=== PATIENT | female | born 1960 | race Caucasian/White ===

== ENCOUNTER 2017-12-03 10:43 | Inpatient (IN) | payer BC ==
[2017-12-03 11:03] LABS: #Basophils 0.1 thou/uL (0.0-0.2); #Lymphocytes 0.9 thou/uL (1.20-3.40); #Monocytes 0.3 thou/uL (0.11-0.59); #Neutrophils 2.2 thou/uL (1.40-6.50); %Eosinophils 1.1 % (0.0-10.0); %Lymphocytes 26.2 % (21.0-51.0); %Monocytes 8.8 % (0.0-10.0); Hemoglobin 12.7 g/dL (12.0-16.0); Mean Corpuscular HGB CONC 34.1 g/dL (32.0-36.0); Mean Corpuscular Volume 93.8 fL (78.0-98.0); Mean Platelet Volume 6.5 fL (7.4-10.4); Platelet Count 181 thou/uL (130-400); RBC Distribution Width 11.5 % (11.5-14.5); Red Blood Cell (RBC) Count 3.96 mill/uL (4.20-5.40); White Blood Cell (WBC) Count 3.6 thou/uL (4.8-10.8)
[2017-12-03] MEDS ORDERED: Mannitol 12.5 GM/50 ML ONE ×2 (11:21→11:22)
[2017-12-03 11:22] LABS: ALT (SGPT) 15 U/L (8-55); AST (SGOT) 21 U/L (5-34); Albumin 3.7 g/dL (3.5-5.0); Alkaline Phosphatase 30 U/L (40-150); Anion Gap 8 mmol/L (10-20); BUN (Urea Nitrogen) 16 mg/dL (9.8-20.1); Bilirubin, Total 0.5 mg/dL (0.2-1.2); Calc. Creatinine Clearance 0 mL/min (70-130); Calcium 8.6 mg/dL (7.8-10.44); Carbon Dioxide 26 mmol/L (22-29); Chloride 108 mmol/L (98-107); Estimated GFR-MDRD 77; Globulin 2.5 g/dL (2.4-3.5); Glucose 102 mg/dL (70-105); Potassium 3.5 mmol/L (3.5-5.1); Protein, Total 6.2 g/dL (6.0-8.3); Sodium 138 mmol/L (136-145)
[2017-12-03 11:26] LABS: INR-International Normal Ratio 1.3; Prothrombin Time 15.9 SEC (12.0-14.7)
--- NOTE | 2017-12-03 11:26 | CT ---
NONCONTRAST HEAD CT: Date: 12/03/17 HISTORY: Trauma. COMPARISON: None. FINDINGS: There is linear hyperdensity involving the sulci along the left and right frontal region near the ishmael london. Additional hyperdensity along the right sylvian fissure, right ambient cistern, and interpeduncu lar cistern is noted. Small amount of ventricular blood is noted along the posterior body of the righ t lateral ventricle. No significant midline shift. There is hypoattenuation involving the right linn sular white matter. No evidence of hydrocephalus. Calvarium is intact. Adequate aeration of the sinus es and mastoid air cells. IMPRESSION: Extra-axial hemorrhage predominantly in the subarachnoid space. Results of study discussed with Dr. Salas on 12/03/17 at 1104 hours. CODE CR. POS: [facility]
[2017-12-03 11:27] LABS: PTT 29.9 SEC (22.9-36.1)
[2017-12-03 11:30] LABS: Actual Bicarbonate (HCO3a) 20.2 mEq/L (22-28); Analyzer IN Cardio ER; Base Excess (BEa) 0.1 mEq/L (-2.0 to +3.0); Calcium, Ionized 1.01 mmol/L (1.12-1.30); Carboxyhemoglobin (COHb) 0.3 gm% (0.0-3.0); Hemoglobin (Hb) 12.7 g/dL (12.0-16.0); O2 Tension (PaO2) 384.5 mmHg (80.0-100.0); Potassium - ABG Lab 3.53 mmol/L (3.70-5.30)
[2017-12-03 11:31] LABS: CO2 Tension 21.7 mmHg (35.0-45.0); Puncture Site LRA; pH, Arterial 7.59 (7.35-7.45)
[2017-12-03 11:32] LABS: ALV-art Gradient -55.125 (0-20)
--- NOTE | 2017-12-03 11:56 | CT ---
CT OF THE CHEST WITH IV ENHANCEMENT CT OF THE ABDOMEN AND PELVIS WITH IV ENHANCEMENT: Date: 12-03-17 Provided Clinical History: Level I trauma. Riding a horse, rolled over her head. Unresponsive. FINDINGS: The heart, pericardium and great vessels demonstrate no evidence for traumatic abnormality. The lungs appear free of significant opacity. Bibasilar subsegmental atelectatic change. No pleural fluid or p neumothorax apparent. Endotracheal tube and enteric catheters are appropriately positioned. The solid abdominal organs demonstrate no evidence for traumatic abnormality. Periportal hypodensity involves the liver. A gallstone is seen. There is no bowel dilatation, inflammatory fat stranding, fr ee fluid, or free air apparent. Rodriguez catheter was noted within the urinary bladder with associated b ladder gas. There is a nondisplaced right posterior 8th rib fracture. No additional traumatic abnormality is seen involving the osseous structures. Sagittal and coronal thoracic and lumbar spine reconstructions dem onstrate normal spinal alignment and maintenance of vertebral body heights. IMPRESSION: Nondisplaced right posterior 8th rib fracture. No additional traumatic findings involving the chest, abdomen, and pelvis. Findings communicated to Dr. Salas via telephone at 11:24 a.m. 12-03-17. Code CR POS: [facility]
--- NOTE | 2017-12-03 11:59 | CT ---
CT ANGIOGRAM OF NECK WITH CONTRAST CT ANGIOGRAM OF HEAD WITH CONTRAST: Date: 12/03/17 Time: 1102 hours HISTORY: 57-year-old female status post head trauma and subarachnoid hemorrhage. Loss of consciousness. Curren tly unresponsive and intubated. Rule out intracranial aneurysm as primary cause of subarachnoid hemor rhage. Rule out carotid thromboembolism. TECHNIQUE: IV contrast bolus injection. Arterial bolus chasing technique scan from aortopulmonic window to verte x of head. Coronal and sagittal 3D MIP reconstructions. FINDINGS: The brachiocephalic, bilateral subclavian, bilateral codominant vertebral, bilateral common carotid, and bilateral internal carotid, are patent and of normal caliber, with no dissection, stenosis, or oc clusion. Bovine origin of common carotid artery. Bilateral carotid siphons, A1 and A2 segments of bilateral anterior cerebral arteries, M1 segments of bilateral middle cerebral arteries, intracranial vertebral arteries, basilar artery, bilateral poste rior cerebral arteries, are patent. There is a patent anterior communicating artery. There is a left posterior communicating artery. There is an approximately 2 x 2.5 x 2.5 mm focal minimal bulbous expansion at the trifurcation of the right middle cerebral artery, from which three branching vessels arise. This is at the location of the greatest concentration of subarachnoid hemorrhage (right Sylvian fissure). There is no evidence o f an aneurysm neck. There is no evidence of intracranial aneurysm elsewhere. Endotracheal tube distal tip is slightly superior to the danis, directed at the right mainstem bronc hus. NG tube passes through the esophagus, distal portion outside of field of view. No acute fracture or traumatic subluxation of the cervical spine. Dr. Noble discussed the aneurysm by telephone with Dr. Salas at approximately 1134 hours on 12/03/17. IMPRESSION: 1. 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 There is no evidence of an aneurysm neck. 2. No abnormalities of other major arteries of the head and neck. 3. No fracture of the cervical spine. CODE CR. POS: [facility]
[2017-12-03] MEDS ORDERED: Ondansetron HCl/PF 4 MG/2 ML Vial IVP PRN (12:11)
[2017-12-03] MEDS ORDERED: Dextrose 50% Abboject 50 ML SYRINGE SLOW IVP PRN (12:11)
[2017-12-03] MEDS ORDERED: Dextrose 5% in Water 1,000 ML IV PRN (12:11)
[2017-12-03] MEDS ORDERED: ISOVUE-370 76%-LOCM 1 ML ONE (12:31)
--- NOTE | 2017-12-03 12:31 | HP ---
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 The patient reportedly was noted to be looking down when she tipped over and landed on the ground with a horse falling on top of her. The horse immediately stood up. The patient was unresponsive at the scene. EMS was activated. The patient was found at the scene with initial Cordele coma scale of E1 B1 M2. Her right pupil was fixed and dilated. The patient was electively intubated to protect her airway. She was then transported via ground EMS to [facility] Emergency Department where she arrived within 1 hour of the incident. Cordele coma scale upon arrival was noted at 3T. PAST MEDICAL AND SURGICAL HISTORY: Unknown. SOCIAL HISTORY: Unknown. CURRENT MEDICATIONS: Unknown. ALLERGIES: Unknown. FAMILY HISTORY: Unknown. REVIEW OF SYSTEMS: Could not be obtained as patient is in deep coma. PHYSICAL EXAMINATION: GENERAL: This reveals a 57-year-old normally developed woman who is in a deep coma, but otherwise hemodynamically stable. VITAL SIGNS: Initial vital signs includes blood pressure 158/108, pulse 81, respiratory rate is 19, oxygen saturation 100% on FiO2 of 100%, end-tidal CO2 noted at 27. HEENT: Reveals normocephalic and atraumatic. The right pupil is fixed and dilated at 6 mm. The left pupil is 3 mm and sluggishly reactive to light. Nares are patent, no discharge. Tympanic membranes are visualized. No hemotympanum is present. The patient is orally intubated. NECK: Cervical spine immobilized in a C-collar and maintained in neutral position during my examination. She has no cervical neck bony step-offs on palpation. CHEST: Chest wall is stable. No gross deformities or step-offs are present. HEART: Reveals regular rate and rhythm, no murmurs or gallops auscultated. LUNGS: Clear to auscultation bilaterally. Breathing regular and unlabored. ABDOMEN: Soft, nontender, nondistended. Liver and spleen nonpalpable below costal margin. PELVIS: Stable. No gross deformities or step-offs are present. EXTREMITIES: Reveals 2+ radial and pedal pulses bilaterally. No ankle edema is present. MUSCULOSKELETAL: Could not be tested. The patient is currently pharmacologically paralyzed from intubation. Once log-rolled thoracic and lumbar spine were palpated free of any bony step- offs or abnormalities. PERTINENT LABORATORY DATA: Today includes a CBC with 3600 white blood cells, hemoglobin and hematocrit 12.7 and 37.1 respectively. Platelet count is 181, 000. PTT and INR 29.9 seconds and 1.3 respectively. Arterial blood gas; pH 7.59, pCO2 22, pO2 384, oxygen saturation 99%. Metabolic profile: Sodium 129, potassium is 3.53, chloride is 104. Ionized calcium is 1.01, glucose is 102. AST and ALT 21 and 15 respectively. Amylase is normal at 76. I have personally reviewed the radiographic studies including a CT scan of the brain, which reveals bilateral subarachnoid hemorrhages with a small right intraventricular hemorrhage. There is no significant mass effects noted. CT angiography of the neck is unremarkable for any vascular injuries. CT scan of the cervical spine reveals no fractures or dislocation. CT angiography of the brain; however, is highly suspicious for a small ruptured middle cerebral arterial aneurysm. CT scan of the thoracic and lumbar spine are unremarkable for any fractures or dislocation. CT scan of the chest is remarkable for a nondisplaced right 8th posterior rib fracture. There is no acute intrathoracic pathology of note, CT scan of the abdomen and pelvis reveals no acute intraabdominal pathology. IMPRESSION: 1. Status post fall from horse. 2. Acute subarachnoid hemorrhage, likely traumatic vs secondary to ruptured aneurysm in the middle cerebral arterial distribution. 3. Acute respiratory failure. 4. Right eighth rib fracture. 5. Cerebral edema PLAN: 1. Neurosurgical consultation regarding the acute traumatic brain injury. 2. We continue with full mechanical ventilator support until patient is hemodynamically and neurologically stable. 3. We will initiate gastritis and nonpharmacological VTE prophylaxis. 4. We will monitor and correct abnormal electrolytes. 5. We will monitor and control blood pressure. 6. We will optimize ventilatory support to avoid hyperventilation. Total Critical care time : 55 minutes MTDD
[2017-12-03] MEDS ORDERED: Propofol BOLUS 1,000 MG/100 ML VIAL IV PRN (13:30)
[2017-12-03] MEDS ORDERED: hydrALAZINE 20 MG/ML VIAL SLOW IVP PRN (13:48)
[2017-12-03] MEDS ORDERED: Labetalol HCl 100 MG/20 ML VIAL SLOW IVP PRN (13:48)
[2017-12-03 14:51] LABS: Actual Bicarbonate (HCO3a) 20.1 mEq/L (22-28); Base Excess (BEa) -3.4 mEq/L (-2.0 to +3.0); CO2 Tension 31.6 mmHg (35.0-45.0); Calcium, Ionized 1.14 mmol/L (1.12-1.30); Hemoglobin (Hb) 13.3 g/dL (12.0-16.0); pH, Arterial 7.42 (7.35-7.45)
[2017-12-03 14:52] LABS: Puncture Site RRA
[2017-12-03] MEDS: Sodium Chloride 0.9% 1,000 ML IV SCH ×4 (15:17→23:15)
[2017-12-03 17:27] LABS: Actual Bicarbonate (HCO3a) 20.5 mEq/L (22-28); Base Excess (BEa) -0.6 mEq/L (-2.0 to +3.0); Calcium, Ionized 1.09 mmol/L (1.12-1.30); Carboxyhemoglobin (COHb) 0.6 gm% (0.0-3.0); Hemoglobin (Hb) 13.1 g/dL (12.0-16.0); O2 Tension (PaO2) 284.2 mmHg (80.0-100.0); Potassium - ABG Lab 3.63 mmol/L (3.70-5.30); pH, Arterial 7.54 (7.35-7.45)
[2017-12-03 17:34] LABS: CO2 Tension 24.6 mmHg (35.0-45.0); Puncture Site RRA
[2017-12-03 17:55] LABS: Actual Bicarbonate (HCO3a) 23.2 mEq/L (22-28); Base Excess (BEa) -0.2 mEq/L (-2.0 to +3.0); CO2 Tension 34.1 mmHg (35.0-45.0); Calcium, Ionized 1.12 mmol/L (1.12-1.30); Carboxyhemoglobin (COHb) 0.9 gm% (0.0-3.0); Hemoglobin (Hb) 13.3 g/dL (12.0-16.0); O2 Tension (PaO2) 206.4 mmHg (80.0-100.0); Potassium - ABG Lab 3.62 mmol/L (3.70-5.30); pH, Arterial 7.45 (7.35-7.45)
[2017-12-03 17:56] LABS: Puncture Site RRA
[2017-12-03 17:57] LABS: ALV-art Gradient 36.175 (0-20)
[2017-12-03] MEDS ORDERED: Fentanyl 100 MCG/2 ML VIAL ONE ×2 (18:45→21:05)
--- NOTE | 2017-12-03 18:49 | CT ---
NONCONTRAST HEAD CT: Date: 12/03/17 HISTORY: Follow-up hemorrhage. COMPARISON: 12/03/17. FINDINGS: Interval increase in cerebral hemorrhage. Currently, there is evidence of a new parenchymal hemorrhag e centered in the right frontotemporal region. This parenchymal hematoma measures 4.1 x 1.9 cm. There is associated effacement of the right frontal, and to a lesser extent, temporal sulci. There is mass effect upon the right lateral ventricle. Newly developed 5 mm of [id number] subfalcine herniation . There is redemonstration of intraventricular and subarachnoid hemorrhage. There is a small amount o f hemorrhage layering in the dependent portion of the left lateral ventricle. There are new parenchym al hemorrhages along the right frontal subcortical white matter. The largest hemorrhagic focus measur es 1.4 x 1.2 cm. Stable aeration of the sinuses and mastoid air cells. Calvarium is intact. IMPRESSION: 1. Worsening intraparenchymal hemorrhage. 2. Newly developed right to left subfalcine herniation with mass effect upon the right frontal and t emporal sulci, as well as the right lateral ventricle. Results of study discussed with Dr. Salas on 12/03/17 at 1828 hours. CODE CR. POS: [facility]
[2017-12-03 18:50] LABS: Sodium 139 mmol/L (136-145)
[2017-12-03] MEDS: IN MANNITOL FS SCH (19:35)
[2017-12-03] MEDS: ADMIXTURE FEE FS SCH (19:35)
--- NOTE | 2017-12-03 19:40 | OP ---
DATE OF PROCEDURE: 12/03/2017 SURGEON: Randall Rivera M.D. FOLDER MACHINE: None. INDICATION: Obtain ICP. DIAGNOSIS: Closed head injury. PROCEDURE: Placement of ICP monitor. ANESTHESIA: General and local. PROCEDURE IN DETAIL: The patient was already intubated in her room in the ICU and under a slight deg ree of sedation. A small area was shaved along the right frontal aspect of her crown. Area in line with the mid pupillary line just in front of the coronal suture was prepped and draped. A small inci nanci was made using a 15 blade knife. A twist drill was used to create a twist drill hole. The Naomy no bolt was carefully placed and secured. Pasha pressure monitor was zeroed at the orifice of the b olt and subsequently placed through the bolt and secured. The procedure came to an end without compl ication.
--- NOTE | 2017-12-03 19:51 | PRG ---
DATE OF SERVICE: 12/03/2017 SUBJECTIVE: Ms. Rasheed is a 57-year-old female that had a witnessed fall off a horse today. The who is present relates the events. She fell with the horse onto the ground, striking the right frontal aspect of her head. When he approached her, she was unconscious with sonorous sounds. She was then transferred to the ER along the way where she was rapid sequence intubated. She had imaging performed of the cervical spine as well as the head in the way of CT scan. The CT scan revealed traumatic subarachnoid hemorrhage throughout. There is also evidence of some edema within the right hemisphere. A CT angiogram performed in the same setting revealed what may be a very small MCA trifurcation region aneurysm. The size of this potential aneurysm is quite small and may also represent a vessel loop. Either way, I believe its presence is incidental to her injury and the subarachnoid hemorrhage is traumatic in nature and not aneurysmal. She was admitted to the ICU for additional management. A followup CT scan was performed which revealed anticipated intracerebral contusions throughout, the largest of which is in the right hemisphere on the side of impact of her injury. She has a mild degree of midline shift. I discussed her case with Dr. Salas and agreed to place a Pasha ICP monitor. She does have a fixed and dilated pupil on the right side, which I believe is traumatic in etiology. She does exhibit some movement to stimulation predominantly in the way of extensor posturing. The ICP monitor was placed without incident where initial readings were in the high teens and low 20s. Neurosurgical plan at this point is one of nonsurgical management. I had a lengthy discussion with the and one of her daughters to discuss all the imaging as well as the diagnosis and treatment plan moving forward. ONIEL
[2017-12-03] MEDS: Famotidine/PF 20 mg/2ml Vial SLOW IVP SCH (20:19)
[2017-12-03] MEDS: Acetaminophen 1,000 MG in Premix Bag 1 BAG IVPB PRN (20:24)
[2017-12-03] MEDS ORDERED: Sodium Chloride 0.9% 500 ML IV SCH (23:00)
[2017-12-03] MEDS ORDERED: Fentanyl 100 MCG/2 ML VIAL SLOW IVP SCH (23:00)
[2017-12-04] MEDS: Sodium Chloride 0.9% 1,000 ML IV SCH ×4 (00:40→18:09)
[2017-12-04] MEDS: Propofol 1,000 MG/100 ML VIAL IV PRN ×2 (00:45→12:36)
[2017-12-04 01:34] LABS: Sodium 139 mmol/L (136-145)
[2017-12-04] MEDS: IN MANNITOL FS SCH ×4 (02:22→19:57)
[2017-12-04] MEDS: ADMIXTURE FEE FS SCH ×4 (02:22→19:57)
[2017-12-04] MEDS: Acetaminophen 1,000 MG in Premix Bag 1 BAG IVPB PRN (02:32)
[2017-12-04] MEDS ORDERED: Atropine Sulfate 1 mg/10 ml Syringe ONE (04:21)
--- NOTE | 2017-12-04 04:39 | OP ---
PROCEDURE: Right femoral triple-lumen central venous catheter placement, ultrasound guided. INDICATIONS: Central venous access and central venous pressure monitoring. DESCRIPTION OF PROCEDURE: The patient had appropriate timeout performed. The right groin was preppe d and draped in normal sterile fashion. Ultrasound was used to identify the right femoral vein, whic h was punctured with guide needle. The guidewire was not able to be threaded initially. The guide n eedle was removed, repositioned, and once again, punctured the vein. At this time, the guidewire thr eaded without difficulty. The needle was removed. Dilator was advanced again without difficulty. T he triple lumen catheter was then placed over wire. Wire was removed. All three ports flushed and w ere able to withdraw blood effortlessly. The catheter was secured in place with suture, then covered with a Biopatch and Tegaderm. Once the procedure was completed, the lines were again flushed withou t difficulty, and CVP monitoring showed a good waveform. The patient tolerated this procedure withou t difficulty. The patient did receive 2 boluses of 25 mcg of fentanyl during the procedure.
[2017-12-04 05:20] LABS: #Lymphocytes 0.6 thou/uL (1.20-3.40); #Monocytes 0.3 thou/uL (0.11-0.59); %Eosinophils 0.1 % (0.0-10.0); %Lymphocytes 4.8 % (21.0-51.0); %Monocytes 2.6 % (0.0-10.0); %Neutrophils 92.5 % (42.0-75.0); Hemoglobin 12.3 g/dL (12.0-16.0); Mean Corpuscular HGB CONC 33.3 g/dL (32.0-36.0); Mean Corpuscular Hemoglobin 31.5 pg (27.0-31.0); Mean Corpuscular Volume 94.6 fL (78.0-98.0); Mean Platelet Volume 6.5 fL (7.4-10.4); Platelet Count 166 thou/uL (130-400); RBC Distribution Width 11.7 % (11.5-14.5); Red Blood Cell (RBC) Count 3.91 mill/uL (4.20-5.40); White Blood Cell (WBC) Count 11.8 thou/uL (4.8-10.8)
[2017-12-04 05:40] LABS: ALT (SGPT) 35 U/L (8-55); AST (SGOT) 75 U/L (5-34); Albumin 3.5 g/dL (3.5-5.0); Alkaline Phosphatase 30 U/L (40-150); Anion Gap 13 mmol/L (10-20); BUN (Urea Nitrogen) 13 mg/dL (9.8-20.1); Bilirubin, Total 1.6 mg/dL (0.2-1.2); Calc. Creatinine Clearance 77 mL/min (70-130); Calcium 8.5 mg/dL (7.8-10.44); Carbon Dioxide 21 mmol/L (22-29); Chloride 108 mmol/L (98-107); Estimated GFR-MDRD 79; Globulin 2.5 g/dL (2.4-3.5); Glucose 111 mg/dL (70-105); Potassium 3.5 mmol/L (3.5-5.1); Sodium 138 mmol/L (136-145)
[2017-12-04 07:00] LABS: Sodium 139 mmol/L (136-145)
[2017-12-04] MEDS: Famotidine/PF 20 mg/2ml Vial SLOW IVP SCH (07:28)
[2017-12-04] MEDS ORDERED: Sodium Chloride 0.9% 1,000 ML IV SCH (07:54)
--- NOTE | 2017-12-04 08:39 | RAD ---
CHEST 1 VIEW: HISTORY: Respiratory failure. FINDINGS: Cardiac silhouette is magnified by projection. Pulmonary vasculature are unremarkable. Mediastinum is midline. The tip of an endotracheal catheter overlies the thoracic inlet. Nasogastric tube desce nds to the stomach. No lobar consolidation or evidence of pneumothorax. ekg monitor tech leads overl ie the chest. IMPRESSION: Endotracheal catheter is in good radiographic position. POS: [facility]
[2017-12-04] MEDS ORDERED: Fentanyl 100 MCG/2 ML VIAL ONE (09:30)
[2017-12-04] MEDS ORDERED: Vecuronium 10 MG VIAL ONE (09:30)
[2017-12-04] MEDS ORDERED: Vecuronium 10 MG VIAL IV SCH (09:30)
--- NOTE | 2017-12-04 10:52 | RAD ---
FRONTAL VIEW CHEST: COMPARISON: 12/04/2017. INDICATION: Line placement evaluation. FINDINGS: There is a left subclavian venous catheter which has been plate, the tip overlying the SVC. Enteric catheter remains. No pneumothorax or consolidation. No pleural effusion. IMPRESSION: 1. Interval placement of a left subclavian venous catheter in appropriate position. 2. There is no significant postprocedure pneumothorax. POS: [facility]
[2017-12-04] MEDS ORDERED: Fentanyl 100 MCG/2 ML VIAL SLOW IVP SCH (11:30)
--- NOTE | 2017-12-04 12:03 | OP ---
DATE OF PROCEDURE: 12/04/2017 PROCEDURE: Arterial line placement. Performed at the bedside in ICU at approximately 0930 hours. INDICATIONS: Subarachnoid hemorrhage and close blood pressure monitoring. Consent was obtained by the family at the bedside. Completed by: Reuben Patricia PA-C A timeout was performed. DESCRIPTION OF PROCEDURE: The patient was prepped and draped in the usual fashion. Sterile gloves and mask were donned. Initially, the right radial artery was palpated and had collateral circulation appreciated. The site was prepped with chlorhexidine. The patient was on the ventilator and sedated appropriately and given pain medication. A 20 gauge Arrow catheter was used and introduced into the right radial artery. Good flash was obtained; however, the guidewire and catheter was difficult to be passed therefore it was withdrawn. There was a small hematoma. Pressure was applied to the area and decision to abort the right radial artery was made and focused into the left radial artery was evaluated, also had good collateral circulation. Therefore, sides were switched. The patient was placed with the wrist in flexion secured with an arm board and then the left radial artery was prepped with chlorhexidine and sterile procedures were confirmed once again and a 20 gauge Arrow catheter was introduced with the Seldinger technique, the catheter was easily passed with one attempt into the left radial artery. Arterial blood flow was noted. The pressure bag had been prepped by the RN at the bedside, it was flushed and connected to the catheter site. There is a good tranduction and waveform confirming arterial placement. This line was sutured in place with 1 suture and covered with a Tegaderm. An arm board was left in place. The patient tolerated the procedure well. Less than 5 mL of blood loss was recorded. All sharps were placed in the sharps container. [facility]
[2017-12-04] MEDS: Acetaminophen 1,000 MG in Premix Bag 1 BAG IVPB SCH ×2 (12:23→18:09)
--- NOTE | 2017-12-04 12:29 | PRG ---
DATE OF SERVICE: 12/04/2017 Ms. Rasheed this morning is still comatose. She is on very mild sedation at 5 mcg of the Diprivan, bu t no other sedation. She has no blood pressure medications either. Her ICPs have been in the teens all night and at present at bedside they are at 13 with only momentary spikes when she gets agitated or moves. She is still mostly just extensor posturing to any stimulus or on her own. She does not f ollow any commands at the moment. She does not localize pain. She did withdraw to pain with her rig ht upper extremity, but only once. I could not recreate that. Her left pupil remains 3 mm and react cosme. Her right pupil is still dilated, but does have a response to light now where she did not previ ously. She is getting scheduled mannitol. Her most recent lab values were sodium of 138 and an osmo larity of 287. We will defer to fluid and pressure management to primary team with trauma.
--- NOTE | 2017-12-04 12:36 | PRG ---
DATE OF SERVICE: 12/04/2017 SUBJECTIVE: Ms. Rasheed is a 57-year-old woman post-injury #1, status post fall from a horse. The pa luigint sustained a severe acute traumatic brain injury with right-sided greater than left subarachnoid hemorrhages. This had blossomed to right frontal and temporal hemorrhagic contusions on repeat CT s cans. The patient remains in coma. She is slightly sedated on Diprivan at 10 mcg per hour. She spo ntaneously has extensor posturing to all extremities. Intermittently, she withdraws right upper and bilateral lower extremities to painful stimulus. Her Tina coma scale at best is E1 M4 V1T. The p atient is on no vasopressor or inotropic support. Urinary output has been adequate. Cerebral perfus ion pressure has been in excess of 60 mmHg since admission. OBJECTIVE: VITAL SIGNS: This morning includes blood pressure 133/83, pulse is 104, respiratory rate is 16, maxi mum temperature in the last 24 hours is 101.1 degrees Fahrenheit. Oxygen saturation is 100% on FiO2 of 50%. HEENT: Right pupil is 5 mm and sluggishly reactive to light, which is an improvement from yesterday. Left is 3 mm and briskly reactive to light. HEART: Reveals a regular rate and rhythm. LUNGS: Clear to auscultation bilaterally. Breathing is regular and unlabored. ABDOMEN: Soft, nontender, nondistended. Bowel sounds in all four quadrants appear normoactive. EXTREMITIES: Reveals 2+ radial and pedal pulses bilaterally. No ankle edema is present. NEUROLOGIC: Reveals the patient in deep coma, now suboptimal neurological examination. Motor functi on is 3/5 muscle strength in bilateral upper and lower extremities. LABORATORY DATA: Today includes CBC with 11,800 white blood cells, hemoglobin and hematocrit is 12.3 and 37.0 respectively. Platelet count is 166,000. Metabolic profile: Sodium 138, potassium 3.5, c hloride is 108, bicarbonate is 21, BUN 13, creatinine 0.76, glucose is 111, total bilirubin is 1.6, A ST and ALT 75 and 35 respectively. Serum osmolality is 295. IMPRESSION: 1. Status post fall from a horse. 2. Acute severe traumatic brain injury with bilateral subarachnoid hemorrhages. 3. Right frontal and temporal hemorrhagic contusions. 4. Acute posttraumatic respiratory failure. 5. Cerebral edema. PLAN: We will place a central venous catheter for hemodynamic monitoring. Arterial catheter with al so be placed for continuous blood pressure monitoring. We will initiate enteral nutritional suppleme ntation. Continue to monitor and correct abnormal electrolytes. Above findings and plan discussed with the patient's . He indicates understanding of informat ion given. I have answered his questions. Total critical care time is 45 minutes.
--- NOTE | 2017-12-04 12:44 | OP ---
DATE OF PROCEDURE: 12/04/2017 SURGEON: Dr. Danish Salas PREOPERATIVE DIAGNOSES: 1. Acute severe traumatic brain injury. 2. Acute respiratory failure. POSTOPERATIVE DIAGNOSES: 1. Acute severe traumatic brain injury. 2. Acute respiratory failure. PROCEDURES PERFORMED: Placement of left subclavian central venous catheter. INDICATIONS FOR PROCEDURE: A 57-year-old woman who sustained acute severe traumatic brain injury aft er a fall from a horse yesterday. The patient is in acute respiratory failure. She is in deep coma. ICP is elevated. The patient is requiring critical care management of the intracranial pressures. The decision was made to place a central venous catheter to monitor hemodynamics and manage intravasc ular volume. DESCRIPTION OF PROCEDURE: Informed consent obtained from the patient's . The patient was eloy mike in supine position. Left chest wall is sterilely prepped and draped in usual fashion. Skin belo w the left clavicle was anesthetized with 1% lidocaine plain. Left subclavian vein was cannulated wi th an 18 gauge introducer needle returning dark venous blood. A guidewire was passed through the nee dle and advanced into the left subclavian vein without resistance. Needle was withdrawn over the shani dewire. A stab incision is made adjacent to the guidewire using an 11 scalpel. Dilator was passed o ishmael the guidewire dilating subcutaneous tissues. Dilator was removed and a triple-lumen central veno us catheter was advanced over the guidewire and placed in the left subclavian vein without resistance . The guidewire was removed. Dark venous blood was aspirated from all 3 ports which were individual ly flushed with saline. Catheter secured to the anterior chest wall using a 3-0 silk suture at 2 poi nts. Sterile dressings were applied. The patient tolerated this procedure without any apparent comp lications. Portable chest x-ray confirmed proper placement and no pneumothorax present.
[2017-12-04 13:53] LABS: Sodium 138 mmol/L (136-145)
[2017-12-04 14:48] LABS: ALV-art Gradient 148.775 (0-20); Actual Bicarbonate (HCO3a) 21.2 mEq/L (22-28); Base Excess (BEa) -2.4 mEq/L (-2.0 to +3.0); CO2 Tension 32.5 mmHg (35.0-45.0); Calcium, Ionized 1.11 mmol/L (1.12-1.30); Hemoglobin (Hb) 11.9 g/dL (12.0-16.0); O2 Tension (PaO2) 95.8 mmHg (80.0-100.0); Puncture Site ALINE; pH, Arterial 7.43 (7.35-7.45)
--- NOTE | 2017-12-04 15:11 | PRG ---
DATE OF SERVICE: 12/04/2017 Ms. Rasheed is 1-day status post admission for a closed head injury with traumatic subarachnoid hemorrhage and intracerebral contusions with associated degree of mild midline shift. Last evening, we placed a pressure monitor, and since that time her ICPs, have been within a relatively normal range with a normal cerebral perfusion pressure. On exam today, off sedation per report, her GCS score is that of 6t with an improvement in her motor score. The plan from a neurosurgical perspective at this time remains one of nonoperative management. The Neurosurgical service will continue to follow. ONIEL
[2017-12-04 17:21] LABS: Base Excess (BEa) -5.1 mEq/L (-2.0 to +3.0); CO2 Tension 32.4 mmHg (35.0-45.0); Calcium, Ionized 1.16 mmol/L (1.12-1.30); Carboxyhemoglobin (COHb) 1.1 gm% (0.0-3.0); Hemoglobin (Hb) 12.7 g/dL (12.0-16.0); O2 Tension (PaO2) 54.3 mmHg (80.0-100.0); Puncture Site LINE; pH, Arterial 7.39 (7.35-7.45)
[2017-12-04] MEDS: Fentanyl 100 MCG/2 ML VIAL SLOW IVP PRN (18:12)
[2017-12-04 19:08] LABS: Sodium 138 mmol/L (136-145)
[2017-12-04] MEDS ORDERED: Albumin 5% 250 ML ONE (19:52)
[2017-12-04] MEDS ORDERED: Norepinephrine 8 MG/0.9% NS 250 ML ONE (19:54)
[2017-12-04] MEDS: Pantoprazole 40 MG VIAL IVP SCH (20:35)
[2017-12-05] MEDS: Acetaminophen 1,000 MG in Premix Bag 1 BAG IVPB SCH ×3 (00:42→12:51)
[2017-12-05 01:35] LABS: Sodium 140 mmol/L (136-145)
[2017-12-05] MEDS: IN MANNITOL FS SCH ×4 (02:10→21:18)
[2017-12-05] MEDS: ADMIXTURE FEE FS SCH ×4 (02:10→21:18)
[2017-12-05] MEDS: Sodium Chloride 0.9% 1,000 ML IV SCH ×3 (05:46→23:23)
[2017-12-05 07:01] LABS: Anion Gap 13 mmol/L (10-20); BUN (Urea Nitrogen) 11 mg/dL (9.8-20.1); Calc. Creatinine Clearance 84 mL/min (70-130); Calcium 8.9 mg/dL (7.8-10.44); Carbon Dioxide 21 mmol/L (22-29); Chloride 109 mmol/L (98-107); Estimated GFR-MDRD 87; Glucose 98 mg/dL (70-105); Magnesium 1.7 mg/dL (1.6-2.6); Potassium 3.5 mmol/L (3.5-5.1); Sodium 139 mmol/L (136-145)
[2017-12-05 07:04] LABS: Phosphorus 1.4 mg/dL (2.3-4.7)
[2017-12-05 07:09] LABS: Hemoglobin 12.6 g/dL (12.0-16.0); Mean Corpuscular HGB CONC 33.7 g/dL (32.0-36.0); Mean Corpuscular Hemoglobin 31.9 pg (27.0-31.0); Mean Corpuscular Volume 94.6 fL (78.0-98.0); Mean Platelet Volume 6.8 fL (7.4-10.4); Platelet Count 157 thou/uL (130-400); RBC Distribution Width 11.7 % (11.5-14.5); Red Blood Cell (RBC) Count 3.95 mill/uL (4.20-5.40)
[2017-12-05] MEDS ORDERED: Potassium Phosphate 30 MMOL in Sodium Chloride 0.9% 250 ML 250 ML IVPB SCH (08:00)
[2017-12-05 08:36] LABS: Base Excess (BEa) -2.3 mEq/L (-2.0 to +3.0); CO2 Tension 28.6 mmHg (35.0-45.0); Calcium, Ionized 1.18 mmol/L (1.12-1.30); Carboxyhemoglobin (COHb) 1.3 gm% (0.0-3.0); Hemoglobin (Hb) 15.6 g/dL (12.0-16.0); pH, Arterial 7.46 (7.35-7.45)
--- NOTE | 2017-12-05 08:48 | RAD ---
CHEST 1 VIEW: HISTORY: Pulmonary embolism. COMPARISON: Chest radiograph same day. FINDINGS: There are layering bilateral pleural effusions. There are opacities in both lower lobes which appear new. Endotracheal tube tip is felt to be at the level of the clavicles. Enteric tube side port at the GE junction. IMPRESSION: Worsening of lower lobe airspace opacities and layering osseous effusion may be sequelae of edema and effusions, although a developing infection cannot be excluded. POS: [facility]
[2017-12-05 09:00] LABS: Actual Bicarbonate (HCO3a) 19.9 mEq/L (22-28); Base Excess (BEa) -2.3 mEq/L (-2.0 to +3.0); Calcium, Ionized 1.15 mmol/L (1.12-1.30); Carboxyhemoglobin (COHb) 1.1 gm% (0.0-3.0); Hemoglobin (Hb) 12.5 g/dL (12.0-16.0); Potassium - ABG Lab 3.89 mmol/L (3.70-5.30); pH, Arterial 7.49 (7.35-7.45)
[2017-12-05 09:09] LABS: O2 Tension (PaO2) 58.3 mmHg (80.0-100.0); Puncture Site RRA
[2017-12-05 09:11] LABS: O2 Tension (PaO2) 56.7 mmHg (80.0-100.0); Puncture Site ALINE
[2017-12-05] MEDS ORDERED: Potassium Phosphate 30 MMOL, Magnesium Sulfate 2 GM in Sodium Chloride 0.9% 250 ML 250 ML IVPB SCH (09:30)
--- NOTE | 2017-12-05 09:31 | RAD ---
CHEST 1 VIEW: HISTORY: Dyspnea. Intubated. COMPARISON: 12/04/2017. FINDINGS: Cardiac silhouette is magnified by projection. Pulmonary vasculature is slightly more engorged than on the prior study. Bilateral infrahilar infiltrates are similar in appearance. Mediastinum is midl ine. Lines and tubes appear unchanged in position. No evidence of pneumothorax. IMPRESSION: Bibasilar infiltrates, stable. Increasing pulmonary vascular congestion. POS: [facility]
[2017-12-05] MEDS: Propofol 1,000 MG/100 ML VIAL IV PRN (11:31)
[2017-12-05] MEDS: Fentanyl 100 MCG/2 ML VIAL SLOW IVP PRN (11:32)
[2017-12-05 12:18] LABS: Band 45 % (5-11); Lymphocytes 4 % (21-51); MDiff Complete? YES; Metamyelocyte 3 % (0-0); Monocytes 8 % (0-10); Myelocyte 1 % (0-0); Neutrophil 39 % (42-75); PLT Morphology Comment Appears Adequate; Polychromasia SLIGHT = 2-3 cells (100X) (0-2/hpf)
[2017-12-05] MEDS ORDERED: Sodium Bicarbonate Tab 325 MG TAB PER TUBE PRN (13:01)
[2017-12-05] MEDS ORDERED: Pancrelipase DR 12000 1 CAP FS PRN (13:01)
--- NOTE | 2017-12-05 13:45 | PRG ---
DATE OF SERVICE: 12/05/2017 SUBJECTIVE: I saw Ms. Rasheed in the ICU today. She is 2 days out from a horse related trauma. Very poor, she was riding a horse and the horse's right leg went down, the horse went down and she came o ff, striking her head and was brought to the emergency department where CT examination of the brain s howed a subarachnoid hemorrhage in the sulci over the convexities, a frontal contusion and insular hy perdensity on the right side. CT angiography did not show abnormalities in the cervical vasculature, but in the MCA on the right there seemed to be an infundibulum at the trifurcation, but no beltran ane urysm. Dr. Rivera has been following the case until the day and we have taken over on the weekend. Overnight the ICP have been normal, blood pressure readings from her art-line have been unreliable, b ut the cuff had shown blood pressures in the 100s to 120s. PHYSICAL EXAMINATION: Ms. Rasheed reacts to stimulus even though she is on Diprivan drip. She withdr sydney quite briskly in the lower extremities. I got her right arm to withdrawal rather than extend, th e left arm withdraws as well. She grimaces and turns her neck a bit to stimulus as well. She is not opening her eyes. I reviewed previous CT scans. There is minimal shift from the insular hemorrhage and ICP monitors in place and working well. Our plan today is to keep her normothermic. We are not going to use hypothermia for her, but for tem peratures over 99.5, a cooling blanket or Tylenol administration might be worthwhile. We will contin ue ICP monitoring although it has been in the normal range. If we get pass the 72-hour window of hig hest risk, we can start tapering off, we will remove the monitor. Dr. Rivera will be back Thursday, charisse will be time to remove it which would be a reasonable time to remove it.
[2017-12-05 15:31] LABS: Sodium 139 mmol/L (136-145)
[2017-12-05] MEDS ORDERED: Morphine 2 MG/ML SYRINGE SLOW IVP PRN (16:46)
[2017-12-05] MEDS: Acetaminophen 325 MG TAB PO SCH ×2 (18:28→23:10)
[2017-12-05] MEDS: HYDROcodone/Acetaminophen 7.5/325 mg Tablet PO SCH ×2 (18:28→23:10)
--- NOTE | 2017-12-05 18:50 | PRG ---
DATE OF SERVICE: 12/05/2017. Ms. Rasheed is a 57-year-old woman who was thrown from a horse, suffered a severe acute traumatic brai n injury. The patient is post-injury day #2 now. Intracranial pressures has remained fairly stable. Overnight, the ICP has been less than 15. Currently, ICP this morning is between 8, 9 and 11. The patient is on norepinephrine at 9 mcg per minute to sustain adequate mean arterial pressure. Urinary output has been adequate about 0.5 mL per kilogram per hour. The patient required one dose of mannitol about 2:00 hours this morning. Neurologically, Tina coma scale is better today at [id number]. Right pupil, which was 6 mm and fixed initially is now 4 mm, left is a 3 mm, both are reactive to light. The patient has been on bowel rest, thus far on oral gastric tube is returning low output of gastric effluent. OBJECTIVE: VITAL SIGNS: This morning includes blood pressure 96/64, pulse is 61, respiratory rate is 20, temper ature 100.1 degrees Fahrenheit, oxygen saturation 100% on FiO2 of 50%. Repeat chest x-ray today reveals bilateral basilar infiltrates. There is no pneumothorax or pleural effusion present. There is no cardiomegaly present. The patient did have an episode yesterday when she was biting the ET tube, resulting in an acute desaturation secondary to acute negative pressure pulmonary edema whic h is now resolving on increased PEEP. HEENT: Right pupil 4 mm, left 3 mm, both reactive to light. Patient has no jugular venous distention noted. HEART: Reveals regular rate and rhythm, no murmurs or gallops auscultated. CHEST: Clear to auscultation bilaterally. Breathing is regular and unlabored. ABDOMEN: Soft, nontender, nondistended. Bowel sounds in all four quadrants appear normoactive. Liver and spleen remains nonpalpable below costal margin. EXTREMITIES: Reveals 2+ radial and pedal pulses bilaterally. No ankle edema is present. NEUROLOGIC: Tina coma scale [id number]. The patient has spontaneous decerebrate posturing to lower extremities; however, does briskly withdra ws to pain. PERTINENT LABORATORY FINDINGS: Today includes CBC with 11,000 white blood cells, hemoglobin and traci tocrit stable at 12.6 and 37.4 respectively. Platelet count stable at 157,000. Metabolic profile: Sodium 139, potassium 3.5, chloride is 109, bicarbonate is 21, BUN 11, creatinine is 0.70, glucose is 98. Serum osmolality is 297, phosphorus is 1.4, magnesium is 1.7. Arterial blood gas today pH 7.49, pCO2 27, pO2 was 56.7, oxygen saturation 92%, base excess is negati ve 2.3, ionized calcium is 1.1. IMPRESSION: 1. Post-injury day #2, status post fall from a horse. 1. Acute severe traumatic brain injury, stable. 2. Cerebral edema, stable. 3. Acute posttraumatic respiratory failure. 4. Resolving acute negative pressure pulmonary edema. 5. Acute hypokalemia. 6. Acute hypophosphatemia. 7. Acute hypomagnesemia. PLAN: 1. Correct abnormal electrolytes. 2. Continue with full mechanical ventilator support with a PEEP set at 10 until adequate oxygenation is achieved. 3. Initiate physical and occupational therapy. The patient will be mobilized to a neuro chair daily . 4. We will initiate enteral nutritional support at this time. 5. Continue with low dose vasopressor/inotropic support to maintain adequate mean arterial pressure. We will monitor the patient's urinary output in point of her resuscitation. Above findings and plan have been discussed with family at bedside. They indicated understanding of information given. I answered their questions. Total critical care time is 50 minutes.
[2017-12-05 20:09] LABS: Sodium 140 mmol/L (136-145)
[2017-12-05] MEDS: Pantoprazole 40 MG VIAL IVP SCH (21:25)
[2017-12-05] MEDS: Norepinephrine 8 MG/250 ML BAG IVPB PRN (22:35)
[2017-12-06] MEDS: Sodium Chloride 0.9% 1,000 ML IV SCH ×2 (02:20→17:38)
[2017-12-06 02:29] LABS: Sodium 141 mmol/L (136-145)
[2017-12-06] MEDS: IN MANNITOL FS SCH ×4 (02:56→23:37)
[2017-12-06] MEDS: ADMIXTURE FEE FS SCH ×4 (02:56→23:37)
[2017-12-06] MEDS: HYDROcodone/Acetaminophen 7.5/325 mg Tablet PO SCH ×4 (04:41→22:38)
[2017-12-06] MEDS: Acetaminophen 325 MG TAB PO SCH ×4 (04:41→22:38)
[2017-12-06] MEDS: Propofol 1,000 MG/100 ML VIAL IV PRN ×2 (04:52→20:12)
[2017-12-06 06:43] LABS: Actual Bicarbonate (HCO3a) 23.8 mEq/L (22-28); Base Excess (BEa) 0.9 mEq/L (-2.0 to +3.0); CO2 Tension 31.9 mmHg (35.0-45.0); Calcium, Ionized 1.12 mmol/L (1.12-1.30); Carboxyhemoglobin (COHb) 1.2 gm% (0.0-3.0); Potassium - ABG Lab 3.49 mmol/L (3.70-5.30); pH, Arterial 7.49 (7.35-7.45)
[2017-12-06 07:10] LABS: Puncture Site ALINE
[2017-12-06 07:11] LABS: ALV-art Gradient 239.625 (0-20)
--- NOTE | 2017-12-06 07:51 | RAD ---
CHEST 1 VIEW: HISTORY: Dyspnea. Followup. COMPARISON: 12/05/2017. FINDINGS: Cardiac silhouette is magnified by projection. Pulmonary vasculature remains engorged, slightly more than on the prior study, with worsening bibasilar infiltrates. A small amount of bilateral pleural fluid is now suspected. Mediastinum remains midline. Lines and tubes are unchanged in position. IMPRESSION: Further worsening of pulmonary edema. Bilateral pleural fluid now apparent. POS: [facility]
[2017-12-06 08:16] LABS: Anion Gap 10 mmol/L (10-20); BUN (Urea Nitrogen) 17 mg/dL (9.8-20.1); Calc. Creatinine Clearance 94 mL/min (70-130); Calcium 8.1 mg/dL (7.8-10.44); Carbon Dioxide 22 mmol/L (22-29); Chloride 113 mmol/L (98-107); Estimated GFR-MDRD Greater than 90; Glucose 150 mg/dL (70-105); Magnesium 1.9 mg/dL (1.6-2.6); Potassium 3.4 mmol/L (3.5-5.1); Sodium 142 mmol/L (136-145)
[2017-12-06 08:23] LABS: Phosphorus 1.2 mg/dL (2.3-4.7)
[2017-12-06] MEDS ORDERED: Potassium Phosphate 30 MMOL in Sodium Chloride 0.9% 250 ML 250 ML IVPB SCH (09:00)
[2017-12-06] MEDS ORDERED: cefTRIAXone\\ROCEPHIN 2 GM in Sodium Chloride 0.9% 100 ML IVPB SCH (09:00)
[2017-12-06] MEDS: Senokot S 8.6-50 MG TAB PO SCH ×2 (09:22→20:13)
--- NOTE | 2017-12-06 11:27 | PRG ---
DATE OF SERVICE: 12/06/2017 It has been 3 days since Ms. Rasheed was admitted to the ICU with a brain injury from a horse fall. S he has had an ICP monitor in place and she has been getting intermittent boluses of mannitol. Nurses overnight did not report significant neurological changes during their neuro checks off of propofol. She can barely tolerate the tube when the propofol was weaned; her ICP goes up, she gets irritated, and she begins to flex and extend both upper extremities. She moves her legs, and because of her IC P issues, she is put back on the propofol. So, I looked at the recorded vital signs. I do not see a ny fevers since the evening of the 4th; a low-grade fever from yesterday afternoon. Blood pressures have been in the 90s to 110s. She is mechanically ventilated. The nurse bladder temperatures, I do see a fever, which we should treat. On examination, Ms. Rasheed has propofol running. Cranial nerve reflexes seem to be intact to central stimulus. She first extends her arms and she flexes both arms towards the stimulus. To nailbed pre ssure, she withdraws more briskly with the legs than she does the arms, but there is definitive withd wen. ICP dropped from 18-7, as I woke her up. Sodium this morning is 141. Ms. Rasheed was neurologically stable from our examination yesterday. She could have a hard time comi ng off the propofol, giving her irritation with the endotracheal tube. Thankfully, her ICPs are well managed. I think moving to a MEDIchair/neuro chair is perfectly reasonable as long as the ICP monitor is not d islodged. Her temperature is over 99.5 degrees Fahrenheit and recommend Tylenol administration and cooling blan ket as normothermia is more protective for her brain and will make ICP management that much EEG.
[2017-12-06] MEDS ORDERED: Docusate 100 MG CAP PO SCH (11:45)
[2017-12-06] MEDS: Docusate 100 MG CAP PO SCH ×2 (11:55→11:57)
[2017-12-06] MEDS: Polyethylene Glycol 3350 17 GM Packet PER TUBE SCH (11:58)
[2017-12-06] MEDS ORDERED: VANCOMYCIN IVPB PRN (13:00)
--- NOTE | 2017-12-06 13:18 | PRG ---
DATE OF SERVICE: 12/06/2017. SUBJECTIVE: Ms. Rasheed is a 57-year-old woman who was thrown from a horse 3 days previously, sustain ing an acute severe traumatic brain injury. The patient has remained on full mechanical ventilator s upport since admission. Her intracranial pressures has remained stable consistently less than 20 mmH g. Cerebral perfusion pressure has been in excess of 60 mmHg in the entire time. She is on low dose of norepinephrine to maintain blood pressure. Urinary output has been adequate. [place] coma scale currently is E1-M4-V1T. The patient has a decreasing extensor posturing with activity. She tolerat es tube feeds at goal and has had no bowel movements yet. OBJECTIVE: VITAL SIGNS: This morning includes blood pressure 100/61, pulse 62, respiratory rate is 17, temperat ure is 99.1 degrees Fahrenheit and oxygen saturation 100% on FiO2 of 50%. HEENT: Right pupil 3 mm, left 2 mm, both reactive to light. The patient has no jugular venous diste ntion noted. HEART: Reveals regular rate and rhythm, no murmurs or gallops auscultated. CHEST: Lungs are clear to auscultation bilaterally. Her breathing is regular and unlabored. ABDOMEN: Soft, nontender, nondistended. Bowel sounds in all four quadrants appear normoactive. LABORATORY DATA: Today includes metabolic profile, sodium 142, potassium 3.4, chloride is 113, bicar bonate is 22, BUN 17, creatinine 0.63, glucose 150. Phosphorus is 1.2, magnesium is 1.9 and serum os molality 299. IMPRESSION: I have personally reviewed the chest x-ray, which was obtained today which reveals a rig ht lower lobe consolidation and small bilateral pleural effusion. Respiratory culture, Gram stain re veals many WBCs, many gram positive cocci in pairs, moderate gram-negative coccobacilli and a few gra m positive cocci in clusters. IMPRESSION: 1. Post-injury day #3, status post fall from a horse. 2. Acute severe traumatic brain injury, stable. 3. Acute cerebral edema, improving. 4. Acute posttraumatic respiratory failure, stable. 5. Acute aspiration pneumonia. 6. Acute hypomagnesemia. 7. Acute hypophosphatemia. 8. Acute hypokalemia. PLAN: 1. Correct abnormal electrolytes. 2. Start broad spectrum antibiotics and continue with bronchodilator therapy. 3. Continue with physical and occupational therapy and mobilize the patient to a neuro chair. 4. Continue with enteral nutritional supplementation. Above findings and plan has been discussed with the patient's at bedside. He indicates under standing of information given. I have answered his questions. Total critical care time is 50 minutes.
[2017-12-06] MEDS: Piperacillin/Tazobactam 3.375 GM in Sodium Chloride 0.9% 100 ML IVPB SCH ×2 (14:08→20:12)
[2017-12-06] MEDS: Vancomycin HCl 1 GM in Premix Bag 1 BAG IVPB SCH (14:08)
[2017-12-06] MEDS ORDERED: Ziprasidone 20 MG VIAL ONE (16:46)
[2017-12-06] MEDS ORDERED: Fentanyl 100 MCG/2 ML VIAL ONE (16:46)
[2017-12-06] MEDS: Norepinephrine 8 MG/250 ML BAG IVPB PRN (17:05)
[2017-12-06] MEDS: Pantoprazole 40 MG VIAL IVP SCH (20:13)
[2017-12-06 22:35] LABS: Sodium 141 mmol/L (136-145)
[2017-12-07] MEDS: Vancomycin HCl 1 GM in Premix Bag 1 BAG IVPB SCH ×2 (01:22→13:57)
[2017-12-07] MEDS: Sodium Chloride 0.9% 1,000 ML IV SCH ×3 (02:16→20:02)
[2017-12-07] MEDS: Piperacillin/Tazobactam 3.375 GM in Sodium Chloride 0.9% 100 ML IVPB SCH ×4 (02:17→20:17)
[2017-12-07 04:47] LABS: Anion Gap 9 mmol/L (10-20); BUN (Urea Nitrogen) 15 mg/dL (9.8-20.1); Calc. Creatinine Clearance 99 mL/min (70-130); Carbon Dioxide 23 mmol/L (22-29); Chloride 112 mmol/L (98-107); Estimated GFR-MDRD Greater than 90; Glucose 133 mg/dL (70-105); Potassium 3.2 mmol/L (3.5-5.1); Sodium 141 mmol/L (136-145)
[2017-12-07 04:56] LABS: Magnesium 1.5 mg/dL (1.6-2.6); Phosphorus 2.5 mg/dL (2.3-4.7)
[2017-12-07] MEDS: Acetaminophen 325 MG TAB PO SCH ×4 (05:09→22:10)
[2017-12-07] MEDS: HYDROcodone/Acetaminophen 7.5/325 mg Tablet PO SCH ×4 (05:10→22:10)
[2017-12-07] MEDS ORDERED: Potassium Phosphate 30 MMOL in Sodium Chloride 0.9% 500 ML IVPB SCH (05:45)
[2017-12-07] MEDS ORDERED: Magnesium 2 GM/NS 0.9% 100 ML 2 GM in Premix Bag 1 BAG IVPB SCH (05:45)
[2017-12-07] MEDS ORDERED: Potassium Phosphate 30 MMOL, Magnesium Sulfate 2 GM in Sodium Chloride 0.9% 250 ML 250 ML IVPB SCH (06:00)
[2017-12-07 08:01] LABS: Base Excess (BEa) 0.6 mEq/L (-2.0 to +3.0); CO2 Tension 33.8 mmHg (35.0-45.0); Calcium, Ionized 1.08 mmol/L (1.12-1.30); Carboxyhemoglobin (COHb) 0.7 gm% (0.0-3.0); O2 Tension (PaO2) 97.5 mmHg (80.0-100.0); Potassium - ABG Lab 3.65 mmol/L (3.70-5.30); pH, Arterial 7.47 (7.35-7.45)
[2017-12-07 08:02] LABS: Puncture Site LINE
[2017-12-07] MEDS: Polyethylene Glycol 3350 17 GM Packet PER TUBE SCH (08:30)
[2017-12-07] MEDS: Senokot S 8.6-50 MG TAB PO SCH ×2 (08:30→20:05)
[2017-12-07] MEDS ORDERED: Senokot 8.6 MG TAB PO SCH (09:00)
[2017-12-07 10:45] LABS: Sodium 142 mmol/L (136-145)
[2017-12-07] MEDS: Norepinephrine 8 MG/250 ML BAG IVPB PRN (11:53)
[2017-12-07] MEDS: ADMIXTURE FEE FS SCH ×4 (12:01→23:03)
[2017-12-07] MEDS: IN MANNITOL FS SCH ×4 (12:01→23:03)
[2017-12-07] MEDS ORDERED: Bisacodyl 10 MG SUPP PR SCH (12:30)
[2017-12-07] MEDS: Propofol 1,000 MG/100 ML VIAL IV PRN (17:03)
[2017-12-07] MEDS: Pantoprazole 40 MG VIAL IVP SCH (20:17)
--- NOTE | 2017-12-07 22:35 | PRG ---
DATE OF SERVICE: 12/07/2017 Elle Rasheed is a 57-year-old thrown from a horse. The patient is intubated. She has suffered subar achnoid hemorrhage. She has an ICP monitor in place. She is on vancomycin and Zosyn for aspiration pneumonia. The patient is sedated on the ventilator. Heart rate 53, 106/57. She is tolerating tube feedings. Rodriguez is 1088 in the last 24 hours out. PHYSICAL EXAMINATION: LUNGS: Clear to auscultation. CARDIAC: Regular rate and rhythm without murmur or gallop. ABDOMEN: Soft, nontender. EXTREMITIES: Unremarkable. LABORATORY DATA: No CBC today. Basic metabolic profile: Sodium 141, potassium 3.2, chloride 112. GFR 90, glucose 133, serum osmolality 299 this morning. Phosphorus 2.5, magnesium 1.5. ASSESSMENT AND PLAN: The patient is stable with closed head injury. She has suffered from aspiratio n pneumonia. Would continue the ventilator today and tube feedings. We will continue to monitor hea d injury, intracranial monitoring, discontinuation per Neurosurgery. ICPs have been 10 to 20.
[2017-12-08 01:54] LABS: Vancomycin, Trough 6.2 ug/mL
[2017-12-08 01:59] LABS: Anion Gap 11 mmol/L (10-20); BUN (Urea Nitrogen) 18 mg/dL (9.8-20.1); Calc. Creatinine Clearance 100 mL/min (70-130); Carbon Dioxide 24 mmol/L (22-29); Chloride 112 mmol/L (98-107); Estimated GFR-MDRD Greater than 90; Glucose 134 mg/dL (70-105); Magnesium 1.9 mg/dL (1.6-2.6); Phosphorus 2.8 mg/dL (2.3-4.7); Potassium 3.5 mmol/L (3.5-5.1); Sodium 143 mmol/L (136-145)
[2017-12-08] MEDS ORDERED: Vancomycin HCl 1.25 GM in Sodium Chloride 0.9% 250 ML 250 ML IVPB SCH (02:15)
[2017-12-08] MEDS: Sodium Chloride 0.9% 1,000 ML IV SCH ×2 (02:20→17:26)
[2017-12-08] MEDS: Vancomycin HCl 1 GM in Premix Bag 1 BAG IVPB SCH (02:21)
[2017-12-08] MEDS: Piperacillin/Tazobactam 3.375 GM in Sodium Chloride 0.9% 100 ML IVPB SCH (03:24)
[2017-12-08] MEDS: IN MANNITOL FS SCH ×3 (05:05→18:17)
[2017-12-08] MEDS: ADMIXTURE FEE FS SCH ×3 (05:05→18:17)
[2017-12-08] MEDS: HYDROcodone/Acetaminophen 7.5/325 mg Tablet PO SCH ×4 (05:41→22:57)
[2017-12-08] MEDS: Acetaminophen 325 MG TAB PO SCH ×4 (05:41→22:57)
[2017-12-08] MEDS: Senokot S 8.6-50 MG TAB PO SCH ×2 (08:35→20:05)
[2017-12-08] MEDS: Polyethylene Glycol 3350 17 GM Packet PER TUBE SCH (08:35)
[2017-12-08] MEDS ORDERED: Midazolam HCl 2 mg/2 ml Vial IVP PRN ×2 (09:17)
[2017-12-08] MEDS ORDERED: Fentanyl 100 MCG/2 ML VIAL SLOW IVP PRN (09:18)
[2017-12-08] MEDS ORDERED: Vecuronium 10 MG VIAL IV SCH (09:30)
[2017-12-08] MEDS ORDERED: Lidocaine 1% w/Epinephrine 1:100K 20 ML VIAL FS SCH (09:30)
--- NOTE | 2017-12-08 09:32 | PRG ---
DATE OF SERVICE: 12/08/2017 Ms. Rasheed is on her sixth day of her hospital stay this morning following an accident falling off of a horse with significant closed head injury and intracranial or intraparenchymal hematomas. At beds reina this morning she does have withdrawal reflex to the bilateral lower extremities, to nailbed pain. She has minimal reaction in the bilateral upper extremities with nailbed pain to the upper or lower extremities with central deep stimulus. She does have some extensor posturing of her bilateral uppe r extremities, but there is no localization. Her pupils, her left is still 3 cm and reactive. Her r ight has actually constricted some in comparison to previous examinations, but is still much larger t barillas the left, probably measuring around 8-9 mm and is reactive. Her ICPs since placement of the intr acranial pressure monitor on Thursday have remained normal, fluctuating anywhere from as low as 8 or 9 up to 18 to 19. It has not been up at or above 20 since initial placement. As such, we will go ahea d and remove this today and continue to monitor her neurological progress.
[2017-12-08] MEDS: cefTRIAXone\\ROCEPHIN 2 GM in Sodium Chloride 0.9% 100 ML IVPB SCH (09:43)
[2017-12-08] MEDS ORDERED: Vancomycin HCl 1 GM in Premix Bag 1 BAG IVPB SCH (10:00)
--- NOTE | 2017-12-08 10:47 | CT ---
CT BRAIN PERFORMED WITHOUT CONTRAST ENHANCEMENT: History: Follow up of parenchymal hemorrhage. Comparison: 12-03-17 FINDINGS: The right frontal temporal hemorrhage is again demonstrated. Overall this it is subtly smaller as com pared to the prior examination. It is difficult to precisely measure. Obtained measurements of approx imately 1.8 x 4.5 mm, fairly similar to the previous examination. The amount of acute blood appears s lightly diminished. The mass effect is fairly similar, approximately 5-6 mm of shift. There is subara chnoid blood seen over the convexities. The area of parenchymal hemorrhage which is more over the rig ht frontal convexity shows surrounding edema change and measures 13 mm in size which is fairly simila r to the prior exam, perhaps minimally decreased. The amount of blood in the right Sylvian fissure is slightly diminished. IMPRESSION: Very subtle decrease in size of intraparenchymal hemorrhage in the right frontotemporal region and ve ry slight decrease in the subarachnoid blood. The blood within the right ventricle is similar to the previous study. The midline shift to the left is fairly stable at 5-6 mm. POS: [facility]
[2017-12-08] MEDS: Bisacodyl 10 MG SUPP PR SCH (12:41)
--- NOTE | 2017-12-08 13:23 | PRG ---
DATE OF SERVICE: 12/08/2017 SUBJECTIVE: Ms. Rasheed is a 57-year-old woman suffered a severe acute traumatic brain injury 5 days ago following a fall from a horse. She remains in deep coma. Tina coma scale is noted at E1, V1T, M4. She tolerates tube feeds at g oal, having normal bowel and urinary function. She is on deescalating doses of norepinephrine. She is on broad-spectrum antibiotics for Strep bacteremia as well as multi-organism pneumonia, likely sec ondary to aspiration. OBJECTIVE: VITAL SIGNS: Today includes blood pressure 113/57, pulse 63, respiratory rate is 14. Maximum temper ature in the last 24 hours is 100.0 degrees Fahrenheit. Oxygen saturation is 100% on FiO2 of 50%. HEENT: Right pupil was 3, left 2 mm, and both reactive to light. HEART: Reveals regular rate and rhythm. No murmurs or gallops auscultated. CHEST: Clear to auscultation bilaterally. Breathing is regular and unlabored. ABDOMEN: Soft, nontender, nondistended. EXTREMITIES: Reveals 2+ radial and pedal pulses bilaterally. No ankle edema is present. LABORATORY DATA: Today reveals metabolic profile: Sodium 143, potassium 3.5, chloride is 112, bicar bonate 24, BUN 18, creatinine 0.60, glucose is 134, magnesium 1.9, phosphorus 2.8. Repeat head CT scan today reveals a stable right frontal and right temporal hemorrhagic contusions. Subarachnoid hemorrhages nearly resolved. There is a stable right to left midline shift. IMPRESSION: 1. Post-injury day #5, status post fall from a horse. 2. Acute severe traumatic brain injury, stable. 3. Acute strep pneumonia bacteremia. 4. Multi-organism aspiration pneumonia. 5. Acute hypomagnesemia. 6. Acute hypophosphatemia. 7. Acute hypokalemia. PLAN: 1. Correct abnormal electrolytes. 2. Continue with antibiotic therapy, although vancomycin will be discontinued today as the sensitivi ty studies indicate the need to streamline therapeutics. 3. We will discontinue Zosyn and initiate Rocephin 2 grams daily. 4. We will proceed with placement of a percutaneous tracheostomy tube as well as percutaneous endosc opic gastrostomy tube in anticipation for prolonged inpatient rehabilitation. The above findings and plan will be discussed with the patient's family once they arrive. Total critical care time is 55 minutes.
[2017-12-08] MEDS ORDERED: Bupivacaine/Epinephrine 0.25% 30 ML VIAL ONE (14:27)
[2017-12-08] MEDS ORDERED: Bupivacaine HCl 0.5%/Epinephrine 1:200,000/PF 30 ml Vial ONE (14:27)
[2017-12-08] MEDS ORDERED: Bupivacaine PF 0.5% 30 ML VIAL ONE (14:27)
[2017-12-08] MEDS: Fentanyl 100 MCG/2 ML VIAL SLOW IVP PRN ×2 (15:05→16:05)
[2017-12-08] MEDS ORDERED: Furosemide 40 MG/4 ML VIAL ONE (17:13)
[2017-12-08] MEDS ORDERED: Furosemide 20 MG/2 ML VIAL SLOW IVP SCH (17:30)
[2017-12-08] MEDS: Pantoprazole 40 MG VIAL IVP SCH (20:05)
[2017-12-09] MEDS: Furosemide 20 MG/2 ML VIAL SLOW IVP SCH ×2 (01:25→10:23)
[2017-12-09] MEDS: Acetaminophen 325 MG TAB PO SCH ×4 (04:43→21:00)
[2017-12-09] MEDS: HYDROcodone/Acetaminophen 7.5/325 mg Tablet PO SCH ×2 (04:43→11:13)
[2017-12-09 05:08] LABS: Hemoglobin 9.1 g/dL (12.0-16.0); Mean Corpuscular HGB CONC 32.8 g/dL (32.0-36.0); Mean Corpuscular Hemoglobin 31.1 pg (27.0-31.0); Mean Corpuscular Volume 94.7 fL (78.0-98.0); Mean Platelet Volume 7.4 fL (7.4-10.4); Platelet Count 195 thou/uL (130-400); RBC Distribution Width 11.9 % (11.5-14.5); Red Blood Cell (RBC) Count 2.94 mill/uL (4.20-5.40); White Blood Cell (WBC) Count 7.3 thou/uL (4.8-10.8)
[2017-12-09 05:10] LABS: Anion Gap 9 mmol/L (10-20); BUN (Urea Nitrogen) 19 mg/dL (9.8-20.1); Calc. Creatinine Clearance 101 mL/min (70-130); Calcium 8.8 mg/dL (7.8-10.44); Carbon Dioxide 30 mmol/L (22-29); Chloride 106 mmol/L (98-107); Estimated GFR-MDRD Greater than 90; Glucose 97 mg/dL (70-105); Magnesium 1.9 mg/dL (1.6-2.6); Phosphorus 3.7 mg/dL (2.3-4.7); Potassium 3.4 mmol/L (3.5-5.1); Sodium 142 mmol/L (136-145)
[2017-12-09 05:24] LABS: Band 10 % (5-11); Eosinophils 1 % (0-10); Lymphocytes 15 % (21-51); MDiff Complete? YES; Metamyelocyte 1 % (0-0); Monocytes 9 % (0-10); Neutrophil 63 % (42-75); Nucleated RBC 1 % (0); PLT Morphology Comment Appears Adequate
[2017-12-09 07:23] LABS: Actual Bicarbonate (HCO3a) 30.4 mEq/L (22-28); Base Excess (BEa) 6.3 mEq/L (-2.0 to +3.0); CO2 Tension 42.1 mmHg (35.0-45.0); Calcium, Ionized 1.13 mmol/L (1.12-1.30); Carboxyhemoglobin (COHb) 1.3 gm% (0.0-3.0); Hemoglobin (Hb) 8.9 g/dL (12.0-16.0); O2 Tension (PaO2) 128.5 mmHg (80.0-100.0); Potassium - ABG Lab 3.38 mmol/L (3.70-5.30); pH, Arterial 7.48 (7.35-7.45)
[2017-12-09 07:33] LABS: ALV-art Gradient 175.375 (0-20); Puncture Site ALINE
[2017-12-09] MEDS: cefTRIAXone\\ROCEPHIN 2 GM in Sodium Chloride 0.9% 100 ML IVPB SCH (09:07)
--- NOTE | 2017-12-09 09:11 | RAD ---
PORTABLE CHEST: History: Respiratory failure. CCU follow up. Comparison: 12-06-17 FINDINGS: Tracheostomy device is in place. The lungs are well aerated. Hazy opacity in the lung bases obscures the hemidiaphragms, possibly representing small effusions and/or basilar atelectasis. Bibasilar infil trates are not excluded. Similar findings are noted on 12-06-17. Upper lung ng remain clear. Centr al line is unchanged. IMPRESSION: No significant interval change. POS: [facility]
[2017-12-09] MEDS: Senokot S 8.6-50 MG TAB PO SCH ×2 (09:37→21:00)
[2017-12-09] MEDS: Polyethylene Glycol 3350 17 GM Packet PER TUBE SCH (09:37)
[2017-12-09] MEDS: Bisacodyl 10 MG SUPP PR SCH (09:37)
[2017-12-09] MEDS: Docusate 100 MG CAP PO SCH (09:37)
[2017-12-09] MEDS: Sodium Chloride 0.9% 1,000 ML IV SCH ×3 (11:16→21:00)
--- NOTE | 2017-12-09 14:28 | EEG ---
Referring Physician: Darryn MENARD EEG # [id number] TEST TYPE: ROUTINE PORTABLE INPATIENT REPORT: AN EEG USING THE INTERNATIONAL TEN-TWENTY SYSTEM OF ELECTRODE PLACEMENT WAS PERFORMED. The waking background is a medium amplitude 9 hertz alpha frequency. There is recurrent bursts of high amplitude, generalized slowing seen bilaterally with durations lasting 3-12 seconds. Photic stimulation was unremarkable. No epileptiform features were seen. IMPRESSION: THIS IS AN ABNORMAL STUDY FOR THE FINDINGS OF RECURRENT BURSTS OF GENERALIZED SLOWING OF UNCERTAIN SIGNIFICANCE. CLINICAL CORRELATION IS NEEDED. Hothouse Worker: PANCHO Foam Caster: EEG.DAPHNE ENGLE
--- NOTE | 2017-12-09 15:03 | PRG ---
DATE OF SERVICE: 12/09/2017 SUBJECTIVE: Ms. Rasheed is post-injury day #4 status post fall from a horse. The patient suffered ac [place] severe traumatic brain injury. She is on full mechanical ventilator support. She has been off s edation since yesterday. Her Tina coma scale remains at E1 M4 V1T. The patient is tolerating tub e feeds at goal, having normal bowel and urinary function. Tube feeds has been on hold since PEG tub e placement yesterday. Urinary output has been adequate. EEG which was performed today reveals no s eizure focus. OBJECTIVE: VITAL SIGNS: This morning vital signs today includes blood pressure 118/56, pulse 71, respiratory ra te 15, temperature is 98.8 degrees Fahrenheit, oxygen saturation 100%. HEENT: Right pupil was 3, left 2 mm, both reactive to light. The patient has no jugular venous dist ention noted. HEART: Reveals regular rate and rhythm. No murmurs or gallops auscultated. CHEST: Clear to auscultation bilaterally. Her breathing is regular and unlabored. ABDOMEN: Soft, nontender, nondistended. Bowel sounds in all four quadrants appear normoactive. EXTREMITIES: With 2+ radial and pedal pulses bilaterally. No ankle edema is present. A chest x-ray , which was obtained today reveals a better aeration and resolving right lower lobe consolidative pro cess. There is residual bilateral small pleural effusions present. LABORATORY DATA: Today includes a CBC with 7300 white blood cells, hemoglobin and hematocrit 9.1 and 27.9 respectively. Platelet count is 195,000. Metabolic profile: Sodium is 142, potassium is 3.4, chloride is 106, bicarbonate is 30, BUN 19, creatinine 0.65, glucose is 97, phosphorus is 3.7, magne sium is 1.9. IMPRESSION: 1. Post-injury day #6 status post fall from a horse. 2. Acute severe traumatic brain injury, stable. 3. Acute post-traumatic respiratory failure, stable. 4. Polymicrobial acute aspiration pneumonia, improving. 5. Streptococcus pneumonia bacteremia, stable. PLAN: 1. Continue mechanical ventilator support and wean ventilator support as tolerated. 2. Continue with current antibiotic therapy as clinical course demonstrates appropriate response. 3. Correct abnormal electrolytes. 4. Increased activity per physical and occupational therapy. 5. Anticipate eventual transfer to LTAC versus inpatient rehabilitation depending on patient's neuro logical and clinical course over the next few days. 6. Resume enteral nutritional supplementation via the newly placed PEG tube. Both findings and plan will be discussed with the patient's family upon arrival. Total critical care time is 45 minutes.
[2017-12-09] MEDS ORDERED: Potassium Chloride 40 MEQ in Premix Bag 1 BAG IVPB SCH (16:00)
[2017-12-09] MEDS: Ferrous Sulfate 325 MG TAB PO SCH (17:30)
[2017-12-09 17:51] LABS: Actual Bicarbonate (HCO3a) 29.6 mEq/L (22-28); Base Excess (BEa) 6.1 mEq/L (-2.0 to +3.0); CO2 Tension 38.1 mmHg (35.0-45.0); Calcium, Ionized 1.12 mmol/L (1.12-1.30); Carboxyhemoglobin (COHb) 0.6 gm% (0.0-3.0); Hemoglobin (Hb) 9.7 g/dL (12.0-16.0); O2 Tension (PaO2) 89.1 mmHg (80.0-100.0); Potassium - ABG Lab 3.67 mmol/L (3.70-5.30); pH, Arterial 7.51 (7.35-7.45)
[2017-12-09 17:53] LABS: ALV-art Gradient 148.475 (0-20); Puncture Site LB
[2017-12-09] MEDS: Ascorbic Acid 500 mg Chewable Tablet PO SCH (21:00)
--- NOTE | 2017-12-09 21:00 | ULT ---
BILATERAL LOWER EXTREMITY VENOUS DUPLEX EXAM: 12/09/17 Deep veins of both lower extremities evaluated with color doppler, spectral analysis and compression. INDICATIONS: Lower extremity pain and edema. Assess for DVT. Deep veins of both lower extremities show normal blood flow and compression. No evidence of DVT. IMPRESSION: No evidence of DVT identified in either lower extremity. POS: [facility]
[2017-12-10] MEDS: Acetaminophen 325 MG TAB PO SCH ×6 (00:52→20:39)
[2017-12-10] MEDS: Sodium Chloride 0.9% 1,000 ML IV SCH ×2 (04:36→15:04)
[2017-12-10 07:00] LABS: Hemoglobin 8.4 g/dL (12.0-16.0); Mean Corpuscular HGB CONC 32.3 g/dL (32.0-36.0); Mean Corpuscular Hemoglobin 30.9 pg (27.0-31.0); Mean Corpuscular Volume 95.5 fL (78.0-98.0); Mean Platelet Volume 7.2 fL (7.4-10.4); Platelet Count 248 thou/uL (130-400); RBC Distribution Width 11.9 % (11.5-14.5); Red Blood Cell (RBC) Count 2.74 mill/uL (4.20-5.40); White Blood Cell (WBC) Count 8.2 thou/uL (4.8-10.8)
[2017-12-10 07:23] LABS: Anion Gap 11 mmol/L (10-20); BUN (Urea Nitrogen) 21 mg/dL (9.8-20.1); Calc. Creatinine Clearance 103 mL/min (70-130); Calcium 8.6 mg/dL (7.8-10.44); Carbon Dioxide 26 mmol/L (22-29); Chloride 110 mmol/L (98-107); Estimated GFR-MDRD Greater than 90; Glucose 139 mg/dL (70-105); Magnesium 2.1 mg/dL (1.6-2.6); Phosphorus 2.5 mg/dL (2.3-4.7); Potassium 3.5 mmol/L (3.5-5.1); Sodium 143 mmol/L (136-145)
[2017-12-10 07:33] LABS: Band 8 % (5-11); Eosinophils 2 % (0-10); Lymphocytes 9 % (21-51); MDiff Complete? YES; Metamyelocyte 1 % (0-0); Monocytes 7 % (0-10); Myelocyte 2 % (0-0); Neutrophil 71 % (42-75); PLT Morphology Comment Appears Adequate; Polychromasia SLIGHT = 2-3 cells (100X) (0-2/hpf)
[2017-12-10 07:59] LABS: Actual Bicarbonate (HCO3a) 24.2 mEq/L (22-28); Base Excess (BEa) 1.1 mEq/L (-2.0 to +3.0); Calcium, Ionized 1.16 mmol/L (1.12-1.30); Carboxyhemoglobin (COHb) 1.7 gm% (0.0-3.0); Hemoglobin (Hb) 7.6 g/dL (12.0-16.0); O2 Tension (PaO2) 99.6 mmHg (80.0-100.0); Potassium - ABG Lab 3.89 mmol/L (3.70-5.30)
[2017-12-10] MEDS: cefTRIAXone\\ROCEPHIN 2 GM in Sodium Chloride 0.9% 100 ML IVPB SCH (08:00)
[2017-12-10 08:01] LABS: Puncture Site LRA
[2017-12-10] MEDS: Ascorbic Acid 500 mg Chewable Tablet PO SCH ×2 (08:02→20:39)
[2017-12-10] MEDS: Ferrous Sulfate 325 MG TAB PO SCH ×2 (08:04→17:58)
[2017-12-10] MEDS: Bisacodyl 10 MG SUPP PR SCH (08:06)
[2017-12-10] MEDS: Senokot S 8.6-50 MG TAB PO SCH ×2 (08:06→20:08)
[2017-12-10] MEDS: Polyethylene Glycol 3350 17 GM Packet PER TUBE SCH (08:06)
[2017-12-10] MEDS: Docusate 100 MG CAP PO SCH (08:06)
[2017-12-10] MEDS: Potassium Chloride 20 MEQ in Premix Bag 1 BAG IVPB SCH ×2 (09:28→11:53)
[2017-12-10] MEDS: Amantadine HCl 100 mg Capsule PO SCH (20:40)
--- NOTE | 2017-12-10 21:36 | CON ---
DATE OF CONSULTATION: 12/10/2017 CONSULTING PHYSICIAN: Hospitalist Service. 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 PLAN: Supportive measures. HISTORY OF PRESENT ILLNESS: Ms. Rasheed is a 57-year-old woman who was brought in after collapsing fr om riding her horse. She was unresponsive at the scene. She was brought into the emergency room and found to have evidence of a subarachnoid hemorrhage on the right side. Her CT angiogram revealed ap proximately 2.5 cm aneurysm emanating off the middle cerebral artery. She was evaluated by Neurosurg brayden and had subsequent surgery. She has been intubated and subsequently trached since her hemorrhage . EEG was ordered recently, which revealed an unusual pattern of fairly normal background with inter vening high amplitude slowing seen over both hemispheres. No epileptiform features were present. PAST MEDICAL HISTORY: Otherwise, negative. ALLERGIES: None reported. SOCIAL HISTORY: Unknown. FAMILY HISTORY: Unknown. REVIEW OF SYSTEMS: Not obtainable. PHYSICAL EXAMINATION: VITAL SIGNS: Stable. She is afebrile. HEENT: Pupils are irregular in size, being larger on the right. Doll's head maneuver produced conju gate eye movement. Conjunctivae are clear. She has a tracheostomy in place. EXTREMITIES: Without any cyanosis or edema. NEUROLOGIC: She stares to mild painful stimulation but would not open her eyes spontaneously. No ve rbal response from her. Her face appeared to be symmetric. Her tone appeared equal in the extremiti es. Her plantar responses were upgoing bilaterally. No abnormal movements were seen. SUMMARY: A middle-aged woman with a subarachnoid hemorrhage and persistent comatose state. Her EEG would suggest the possibility of a reasonable recovery given the periods of normality seen. The pers istent slowing that was seen throughout the study also seems to correlate with her level of conscious ness. I do not see a need for an anticonvulsant at this point. I do not really have any other ideas to offer other than continuing to support her in her recovery.
--- NOTE | 2017-12-10 23:57 | PRG ---
DATE OF SERVICE: 12/10/2017 SUBJECTIVE: The patient remains in the critical care unit. She has had no issues overnight. She is tolerating her tube feeds. She has been off sedation for quite a while now. Her neuro exam remains a GCS of 6, E1 M4, V1T. She has also had bowel function. PHYSICAL EXAMINATION: VITAL SIGNS: Temperature is 100.0, heart rate 64, blood pressure 113/67, respirations 18, oxygen sat uration is 100%. The patient is still on ventilatory support. HEENT: Site where ICP monitor was at is clean, dry, and intact. [place] are intact. No evidence of infection. Pupils are reactive to light. The right pupil remains slightly larger than the left. LUNGS: Clear to auscultation bilaterally. HEART: Regular rate and rhythm. ABDOMEN: Soft, flat with active bowel sounds. EXTREMITIES: Have 2+ pulses. Capillary refill is less than 3 seconds. LABORATORY DATA: White blood cell count 8.2, hemoglobin 8.4, hematocrit 26.1, platelets 248. Sodium 143, potassium 3.5, chloride 110, CO2 is 26, BUN 21, creatinine 0.64, glucose 139, magnesium 2.1, ph osphorus 2.5. There are no radiographs to review this morning. ASSESSMENT AND PLAN: 1. Status post ejection from horse. 1. Acute severe traumatic brain injury, stable. 2. Acute posttraumatic respiratory failure, stable. 3. Polymicrobial acute aspiration pneumonia, improving. 4. Streptococcus pneumonia bacteremia, stable. Plan will be to continue ventilatory support and continue to wean as possible. Antibiotic therapy as directed by her sensitivities. Continue physical and occupational therapy and we have asked case varun de jesus to start looking for LTAC in the [facility] where her residence is at. The eval uation, examination, laboratory and radiographic findings were discussed with and rounded on with Dr. Salas in the critical care unit this morning.
[2017-12-11] MEDS ORDERED: Acetaminophen 650 MG/20.3 ML UDCUP ONE (05:22)
[2017-12-11] MEDS: Ferrous Sulfate 325 MG TAB PO SCH ×2 (08:00→17:30)
[2017-12-11] MEDS: Docusate 100 MG CAP PO SCH (09:00)
[2017-12-11] MEDS: Bisacodyl 10 MG SUPP PR SCH (09:00)
[2017-12-11] MEDS: Polyethylene Glycol 3350 17 GM Packet PER TUBE SCH (09:00)
[2017-12-11] MEDS: cefTRIAXone\\ROCEPHIN 2 GM in Sodium Chloride 0.9% 100 ML IVPB SCH (09:00)
[2017-12-11] MEDS: Senokot S 8.6-50 MG TAB PO SCH ×2 (09:00→20:24)
[2017-12-11] MEDS: Ascorbic Acid 500 mg Chewable Tablet PO SCH ×2 (09:00→21:59)
[2017-12-11] MEDS: Amantadine HCl 100 mg Capsule PO SCH ×2 (09:00→21:59)
[2017-12-11] MEDS ORDERED: Ascorbic Acid 500 mg Chewable Tablet ONE (09:12)
[2017-12-11] MEDS: Acetaminophen 325 MG TAB PO SCH ×5 (11:20→17:30)
[2017-12-11] MEDS: Sodium Chloride 0.9% 1,000 ML IV SCH ×3 (11:20→22:19)
[2017-12-11] MEDS: Sodium Chloride 1 GM TAB PO SCH (13:17)
[2017-12-11 20:25] LABS: Anion Gap 12 mmol/L (10-20); BUN (Urea Nitrogen) 18 mg/dL (9.8-20.1); Calc. Creatinine Clearance 108 mL/min (70-130); Calcium 8.8 mg/dL (7.8-10.44); Carbon Dioxide 24 mmol/L (22-29); Chloride 110 mmol/L (98-107); Estimated GFR-MDRD Greater than 90; Glucose 105 mg/dL (70-105); Magnesium 2.1 mg/dL (1.6-2.6); Phosphorus 3.4 mg/dL (2.3-4.7); Potassium 3.6 mmol/L (3.5-5.1); Sodium 142 mmol/L (136-145)
[2017-12-11 20:30] LABS: Band 5 % (5-11); Hemoglobin 9.9 g/dL (12.0-16.0); Lymphocytes 21 % (21-51); MDiff Complete? YES; Mean Corpuscular HGB CONC 32.7 g/dL (32.0-36.0); Mean Corpuscular Hemoglobin 30.8 pg (27.0-31.0); Mean Corpuscular Volume 94.2 fL (78.0-98.0); Mean Platelet Volume 6.7 fL (7.4-10.4); Monocytes 4 % (0-10); Neutrophil 70 % (42-75); PLT Morphology Comment Appears Adequate; Platelet Count 378 thou/uL (130-400); Red Blood Cell (RBC) Count 3.22 mill/uL (4.20-5.40); White Blood Cell (WBC) Count 13.1 thou/uL (4.8-10.8)
[2017-12-11] MEDS: Acetaminophen 650 MG/20.3 ML UDCUP PO SCH (21:59)
[2017-12-12] MEDS: Acetaminophen 650 MG/20.3 ML UDCUP PO SCH ×6 (02:08→21:12)
[2017-12-12 06:04] LABS: Anion Gap 11 mmol/L (10-20); BUN (Urea Nitrogen) 19 mg/dL (9.8-20.1); Calc. Creatinine Clearance 99 mL/min (70-130); Calcium 8.7 mg/dL (7.8-10.44); Carbon Dioxide 24 mmol/L (22-29); Chloride 110 mmol/L (98-107); Estimated GFR-MDRD Greater than 90; Glucose 121 mg/dL (70-105); Magnesium 2.1 mg/dL (1.6-2.6); Phosphorus 3.5 mg/dL (2.3-4.7); Potassium 3.6 mmol/L (3.5-5.1); Sodium 141 mmol/L (136-145)
[2017-12-12] MEDS: Sodium Chloride 0.9% 1,000 ML IV SCH ×2 (06:45→17:51)
[2017-12-12 06:48] LABS: Band 3 % (5-11); Hemoglobin 9.8 g/dL (12.0-16.0); Lymphocytes 8 % (21-51); MDiff Complete? YES; Mean Corpuscular Hemoglobin 31.2 pg (27.0-31.0); Mean Corpuscular Volume 94.4 fL (78.0-98.0); Mean Platelet Volume 6.9 fL (7.4-10.4); Monocytes 4 % (0-10); Myelocyte 3 % (0-0); Neutrophil 82 % (42-75); Platelet Count 408 thou/uL (130-400); RBC Distribution Width 12.1 % (11.5-14.5); Red Blood Cell (RBC) Count 3.14 mill/uL (4.20-5.40); Toxic Granulation SLIGHT; White Blood Cell (WBC) Count 12.5 thou/uL (4.8-10.8)
--- NOTE | 2017-12-12 08:13 | RAD ---
SEMIUPRIGHT PORTABLE CHEST 1 VIEW: Date: 12/12/17 HISTORY: 57-year-old female, history of follow-up respiratory failure. COMPARISON: 12/09/17. FINDINGS: Tracheostomy tube is in place. There is bilateral vascular congestion and some interstitial and alveo lar edema and small pleural effusions, but showing improvement from the 12/09/17 study. No new proces s. IMPRESSION: Improving bilateral congestion, interstitial and alveolar edema, and pleural effusions from 12/09/17. No significant new process. POS: SEVEN
[2017-12-12] MEDS: Polyethylene Glycol 3350 17 GM Packet PER TUBE SCH (09:27)
[2017-12-12] MEDS: Enoxaparin Sodium 40 MG/0.4 ML SYRINGE SC SCH (09:28)
[2017-12-12] MEDS: cefTRIAXone\\ROCEPHIN 2 GM in Sodium Chloride 0.9% 100 ML IVPB SCH (09:28)
[2017-12-12] MEDS: Amantadine HCl 100 mg Capsule PO SCH ×2 (09:28→21:11)
[2017-12-12] MEDS: Ascorbic Acid 500 mg Chewable Tablet PO SCH ×2 (09:28→21:11)
[2017-12-12] MEDS: Sodium Chloride 1 GM TAB PO SCH (09:28)
[2017-12-12] MEDS: Docusate 100 MG CAP PO SCH (13:13)
[2017-12-12] MEDS: Bisacodyl 10 MG SUPP PR SCH (13:14)
[2017-12-12] MEDS: Senokot S 8.6-50 MG TAB PO SCH ×2 (13:14→20:01)
--- NOTE | 2017-12-12 21:03 | PRG ---
DATE OF SERVICE: 12/12/2017 SUBJECTIVE: The patient is currently on the surgical floor. She had no issues overnight. Family re ports that they are deciding on which rehab facility to have her transferred to. They have gotten a list of options from their insurance company and expect to make a decision at the beginning of this [place], and we will work on facilitating that transport as soon as feasible. The patient is currently t olerating her tube feeds. She has not had any issues with her tracheostomy and her bowel function aguila s resumed. OBJECTIVE: VITAL SIGNS: Temperature is 98.4, heart rate 71, blood pressure 141/75, respirations 18, oxygen satu ration is 96% on trach collar. HEENT: Remains unchanged. LUNGS: Clear to auscultation bilaterally. HEART: Regular rate and rhythm. ABDOMEN: Soft, flat, nontender with active bowel sounds. EXTREMITIES: No pitting edema. Pulses are 2+ and capillary refill is less than 3 seconds. The margie ent's tracheostomy and PEG tube sites all appear clean, dry, and intact. LABORATORY DATA: White blood cell count 12.5, hemoglobin 9.8, hematocrit 29.7, platelets 408. Sodiu m 141, potassium 3.6, chloride 110, CO2 of 24, BUN 19, creatinine 0.66, glucose 121, magnesium 2.1, p hosphorus 3.5. There are no radiographs to review this morning. ASSESSMENT: 1. Status post ejection from horse. 2. Acute severe traumatic brain injury, stable. 3. Acute posttraumatic respiratory failure, stable. 4. Polymicrobial acute aspiration pneumonia, improving. 5. Streptococcus pneumonia bacteremia, stable. PLAN: Plan will be to continue supportive care. Await placement decision. The patient will have he r antibiotics for a total of 14 days. The evaluation, examination, laboratory findings were discusse d with Dr. Salas this morning.
[2017-12-13] MEDS: Acetaminophen 650 MG/20.3 ML UDCUP PO SCH ×6 (01:51→21:48)
[2017-12-13] MEDS: Sodium Chloride 0.9% 1,000 ML IV SCH ×2 (03:27→16:08)
[2017-12-13] MEDS: cefTRIAXone\\ROCEPHIN 2 GM in Sodium Chloride 0.9% 100 ML IVPB SCH (09:52)
[2017-12-13] MEDS: Amantadine HCl 100 mg Capsule PO SCH ×2 (09:53→21:48)
[2017-12-13] MEDS: Senokot S 8.6-50 MG TAB PO SCH ×3 (09:53→20:17)
[2017-12-13] MEDS: Sodium Chloride 1 GM TAB PO SCH (09:54)
[2017-12-13] MEDS: Ascorbic Acid 500 mg Chewable Tablet PO SCH ×2 (09:54→21:48)
[2017-12-13] MEDS: Enoxaparin Sodium 40 MG/0.4 ML SYRINGE SC SCH (09:55)
--- NOTE | 2017-12-13 10:00 | PRG ---
DATE OF SERVICE: 12/13/2017 SUBJECTIVE: The patient remains on the surgical floor. She had no issues overnight. She is tolerat ing her tube feeds and her bowel function has returned. This morning I had a lengthy visit with her . We discussed her placement and I was able to answer all of his questions at this time. PHYSICAL EXAMINATION: VITAL SIGNS: Temperature is 98.2, heart rate 64, blood pressure 111/63, respirations 24, oxygen satu ration is 94% on room air. GENERAL: The patient is resting comfortably in bed. She appears in no distress. HEENT: Unremarkable. Tracheostomy tube is in place. LUNGS: Clear to auscultation bilaterally. HEART: Regular rate and rhythm. ABDOMEN: Soft, flat, nontender with active bowel sounds. PEG tube is functioning properly. EXTREMITIES: Neurovascularly intact x4. LABORATORY DATA: There are no labs or radiographs to review this morning. ASSESSMENT AND PLAN: 1. Status post ejection from horse. 2. Acute severe traumatic brain injury, stable. 3. Acute posttraumatic respiratory failure, stable. 4. Polymicrobial acute aspiration pneumonia, improving. 5. Streptococcus pneumonia bacteremia, stable. PLAN: Plan will be to continue her supportive care, physical and occupational therapy and await plac ement decision.
[2017-12-13] MEDS: Polyethylene Glycol 3350 17 GM Packet PER TUBE SCH (10:19)
[2017-12-13] MEDS: Docusate 100 MG CAP PO SCH (10:21)
[2017-12-13] MEDS: Bisacodyl 10 MG SUPP PR SCH (10:21)
[2017-12-14] MEDS: Acetaminophen 650 MG/20.3 ML UDCUP PO SCH ×6 (01:57→21:49)
[2017-12-14] MEDS: Sodium Chloride 0.9% 1,000 ML IV SCH ×3 (03:06→17:26)
[2017-12-14] MEDS: Enoxaparin Sodium 40 MG/0.4 ML SYRINGE SC SCH (08:05)
[2017-12-14] MEDS: Amantadine HCl 100 mg Capsule PO SCH ×2 (08:06→21:46)
[2017-12-14] MEDS: Ascorbic Acid 500 mg Chewable Tablet PO SCH ×2 (08:06→21:46)
[2017-12-14] MEDS: Bisacodyl 10 MG SUPP PR SCH (08:07)
[2017-12-14] MEDS: Docusate 100 MG CAP PO SCH (08:07)
[2017-12-14] MEDS: cefTRIAXone\\ROCEPHIN 2 GM in Sodium Chloride 0.9% 100 ML IVPB SCH (08:07)
[2017-12-14] MEDS: Polyethylene Glycol 3350 17 GM Packet PER TUBE SCH (08:08)
[2017-12-14] MEDS: Senokot S 8.6-50 MG TAB PO SCH ×2 (08:08→21:46)
[2017-12-14] MEDS: Sodium Chloride 1 GM TAB PO SCH (09:52)
--- NOTE | 2017-12-14 14:44 | PRG-2 ---
DATE OF SERVICE: 12/14/2017 SUBJECTIVE: The patient is a 57-year-old lady who is hospital day # 11 status post admission for a traumatic brain injury and subarachnoid hemorrhage in the right frontal and temporal lobes secondary to falling off of a horse and having the horse roll on top of her. The patient has been transitioned from the ICU to the surgical floor. GCS score of 7: E1, V1, M5 on exam this morning. Slight improvement as the patient now localizes pain. Per family, they have decided on a facility they would like the patient to be transferred to and submitting paperwork today. OBJECTIVE: VITAL SIGNS: Temperature 97.7 degrees Fahrenheit, pulse 77, respirations 20, O2 sat 96% on 5 liters of O2 delivered via her trach collar, blood pressure 116/ 75. GENERAL: The patient is sitting up in bed with eyes closed, in no acute distress. LUNGS: Clear to auscultation bilaterally. CARDIOVASCULAR: Regular rate and rhythm, no murmurs. ABDOMEN: Soft, nontender, nondistended. Normal bowel sounds noted. EXTREMITIES: Neurovascularly intact x4. NEUROLOGIC: GCS score of 7 on exam. E1, V1, M5. The patient has yet to open eyes and does not follow commands. Is able to localize pain on exam. LABORATORY DATA: There is no new laboratory data for review. RADIOLOGIC DATA: There is no new radiologic data for review. ASSESSMENT: 1. Status post ejection from a horse. 2. Acute severe traumatic brain injury, stable. 3. Acute posttraumatic respiratory failure, improving. 4. Polymicrobial acute aspiration pneumonia, improving. 5. Streptococcus pneumonia bacteremia, stable. PLAN: We will continue supportive care and wean off ventilatory support as tolerated. Will continue IV Abx for aspiration PNA and bacteremia so that patient completes a 14 day course. Will continue physical and occupational therapy and await placement decision by the family as the patient will require a long-term care facility. The patient was seen by and the plan was discussed with the trauma attending, Dr. Danish Salas. ONIEL
[2017-12-15] MEDS: Acetaminophen 650 MG/20.3 ML UDCUP PO SCH ×6 (02:20→20:59)
[2017-12-15] MEDS: Sodium Chloride 0.9% 1,000 ML IV SCH ×2 (07:41→18:01)
[2017-12-15] MEDS: cefTRIAXone\\ROCEPHIN 2 GM in Sodium Chloride 0.9% 100 ML IVPB SCH (09:41)
[2017-12-15] MEDS: Enoxaparin Sodium 40 MG/0.4 ML SYRINGE SC SCH (09:41)
[2017-12-15] MEDS: Amantadine HCl 100 mg Capsule PO SCH ×2 (09:42→20:59)
[2017-12-15] MEDS: Ascorbic Acid 500 mg Chewable Tablet PO SCH ×2 (09:42→20:58)
[2017-12-15] MEDS: Bisacodyl 10 MG SUPP PR SCH (09:43)
[2017-12-15] MEDS: Docusate 100 MG CAP PO SCH (09:43)
[2017-12-15] MEDS: Polyethylene Glycol 3350 17 GM Packet PER TUBE SCH ×2 (09:44→18:02)
[2017-12-15] MEDS: Senokot S 8.6-50 MG TAB PO SCH ×2 (09:44→20:59)
[2017-12-15] MEDS: Sodium Chloride 1 GM TAB PO SCH (09:44)
[2017-12-15] MEDS ORDERED: Pantoprazole 40 MG GRANULES PACKET PER TUBE SCH (09:45)
--- NOTE | 2017-12-15 13:04 | PRG ---
DATE OF SERVICE: 12/15/2017 SUBJECTIVE: Ms. Rasheed is a 57-year-old woman post-admission day #12 today, status post a fall from a horse where the patient sustained a severe acute traumatic brain injury. Presenting with acute subarachnoid hemorrhages bilaterally which coalesced to large right frontal and temporal cerebral hemorrhagic contusions. The patient has remained in coma at that time. Currently, [place] coma scale is noted at E1 M5 V1T. The patient tolerated enteral nutritional feeds at goal. She is having normal bowel and urinary function. OBJECTIVE: VITAL SIGNS: Today includes blood pressure 117/76, pulse 69, respiratory rate is 12, temperature is 97.7 degrees Fahrenheit, oxygen saturation currently is 92 % on trach collar at 21%. HEENT: Right pupil is 4 mm and left 3 mm, both reactive to light. HEART: Reveals regular rate and rhythm, no murmurs or gallops auscultated. CHEST: Clear to auscultation bilaterally. Her breathing is regular and unlabored. ABDOMEN: Soft, nontender, nondistended. EXTREMITIES: Reveals 2+ radial and pedal pulses bilaterally. No ankle edema is present. She does demonstrate intermittent spasticity of the lower extremities. LABORATORY DATA: Not obtained today. ASSESSMENT AND PLAN: The patient is currently on antibiotic therapy for Strep pneumo bacteremia as well as polymicrobial pneumonia including Streptococcus pneumoniae and Staphylococcus aureus. Both organisms are sensitive to ceftriaxone. IMPRESSION: 1. Post-injury day #12, status post fall from a horse. 2. Acute severe traumatic brain injury. The patient remains in coma, nevertheless stable. 3. Polymicrobial aspiration pneumonia. 4. Streptococcus pneumoniae bacteremia. PLAN: 1. Continue with physical and occupational therapy. 2. We will complete a 14-day therapy for both the bacteremia and a polymicrobial pneumonia. 3. The patient is certainly hemodynamically and neurologically stable for transfer to LTAC for potential prolonged rehabilitation. This is pending insurance authorization. Above findings and plan has been discussed with the patient's family at bedside. They indicated understanding of the information provided. I answered their questions. ONIEL
[2017-12-16] MEDS: Acetaminophen 650 MG/20.3 ML UDCUP PO SCH ×5 (01:26→19:05)
[2017-12-16] MEDS: Sodium Chloride 0.9% 1,000 ML IV SCH ×2 (01:52→10:44)
[2017-12-16] MEDS ORDERED: Metamucil PACK PER TUBE SCH (09:00)
[2017-12-16] MEDS ORDERED: Pantoprazole 40 MG GRANULES PACKET PER TUBE SCH ×2 (09:00)
[2017-12-16] MEDS: Enoxaparin Sodium 40 MG/0.4 ML SYRINGE SC SCH (09:21)
[2017-12-16] MEDS: Ascorbic Acid 500 mg Chewable Tablet PO SCH (09:22)
[2017-12-16] MEDS: Amantadine HCl 100 mg Capsule PO SCH (09:22)
[2017-12-16] MEDS: Sodium Chloride 1 GM TAB PO SCH (09:22)
[2017-12-16] MEDS: cefTRIAXone\\ROCEPHIN 2 GM in Sodium Chloride 0.9% 100 ML IVPB SCH (10:08)
[2017-12-16] MEDS: Polyethylene Glycol 3350 17 GM Packet PER TUBE SCH (10:45)
[2017-12-16] MEDS: Docusate 100 MG CAP PO SCH (10:45)
[2017-12-16] MEDS: Bisacodyl 10 MG SUPP PR SCH (10:45)
[2017-12-16] MEDS: Senokot S 8.6-50 MG TAB PO SCH (10:45)
--- NOTE | 2017-12-16 13:11 | PRG ---
DATE OF SERVICE: 12/16/2017 SUBJECTIVE: Ms. Rasheed is a 57-year-old woman. She is now post-injury day #13, status post fall fro m a horse. The patient suffered a severe acute traumatic brain injury with bilateral subarachnoid he morrhages as well as a large right frontal and temporal hemorrhagic contusions. She remains in deep coma. Today, however, she was able to slightly open the left eye to noxious stimulus. She is clearl y able to localize to pain with the lower extremities. Blanca coma scale currently is E2 M5 V1T. S he tolerates enteral nutritional feeds at goal. She is having multiple loose bowel movements. Urina ry output appears to be adequate. OBJECTIVE: VITAL SIGNS: This morning includes blood pressure 106/69, pulse is 77, respiratory rate is 16, tempe rature is 97.8 degrees Fahrenheit. Oxygen saturation is 93% on room air. HEENT: Right pupil is 4 mm, left 3 mm, but reactive to light. HEART: Reveals regular rate and rhythm. No murmurs or gallops auscultated. CHEST: Clear to auscultation bilaterally. Breathing is regular and unlabored. ABDOMEN: Soft, nontender, nondistended. Bowel sounds in all four quadrants appear normoactive. EXTREMITIES: There are 2+ radial and pedal pulses bilaterally. No ankle edema is present. IMPRESSION: 1. Post-injury day #13, status post fall from a horse. 2. Acute severe traumatic brain injury, stable. PLAN: 1. Continue with physical and occupational therapy. 2. We will add Metamucil to bulk up the stool as patient is having profound diarrhea which is likely from the tube feeds. We will, however, obtain a stool sample for C. diff toxin evaluation.
[2017-12-16 14:48] VITALS: BMI 19.0
[2017-12-16 15:51] VITALS: BP 102/64; TEMP 98.8
--- NOTE | 2017-12-16 18:54 | DIS ---
DATE OF ADMISSION: 12/03/2017 DATE OF DISCHARGE: 12/16/2017 ADMISSION DIAGNOSES: 1. Status post fall from horse. 2. Acute subarachnoid hemorrhage, likely traumatic versus secondary to ruptured aneurysm in the midd le cerebral artery distribution. 3. Acute respiratory failure. 4. Right eighth rib fracture. 5. Cerebral edema. CONSULTATIONS: Neurosurgery, Dr. Rivera. PROCEDURES: 1. ICP monitor placement. 2. Central line placement. 3. Arterial line placement. SUMMARY: The patient is a 57-year-old woman who was riding a horse that stumbled and she f ell to the ground, where she was immediately rendered unconscious. EMS was notified. Upon their arr ival on the scene, she was noted to have a GCS of 5. She underwent rapid sequence intubation and was brought to the Emergency Department as a level 1 trauma activation. Underwent evaluation and examin ation there and was noted to have the above injuries. She required mechanical ventilatory support fo r several days which would eventually require her endotracheal tube to be exchanged for a tracheostom y tube. During the same procedure, she underwent PEG tube placement. She tolerated these procedures well. The patient was noted to become febrile and bronchial washings showed Streptococcus pneumonia e and Staphylococcus aureus. The patient also had Strep pneumonia in her bloodstream in 2 of her blo od cultures, she was started on broad spectrum antibiotics and once sensitivities came back, she was changed to Rocephin daily. Our plan was for her to have 14 days total of antibiotics which will end on 12/21/2017. At the time of discharge, patient was tolerating her tube feeds. Her bowel function had returned. Her [place] coma scale was E2 M5 V1t. She was able to slightly open her left eye to n oxious stimuli and clearly able to localize the pain with her lower extremities. The patient was raine ng transferred to a long-term acute care facility to continue her Care and Rehabilitation. The patie nt may follow up with Dr. Rivera in the Trauma Service should the family desire to return to this area for followup. Otherwise, we suspect that she will do all of her followup in the [facility]. The patient had bilateral lower extremity venograms done on the day of discharge and they were unremarkable for DVT. The patient has been on Lovenox for chemical VTE prophylaxis for the majority of her stay once she was stable from a neurosurgical standpoint.
--- NOTE | 2017-12-16 19:03 | ULT ---
VENOUS DUPLEX SONOGRAM BILATERAL LOWER EXTREMITY: 12/16/17 HISTORY: Bilateral leg pain and edema. FINDINGS: Each common femoral vein and greater saphenous junction were evaluated along with each femoral, deep femoral, popliteal, and posterior tibial vein. There is good color and spectral doppler flow, dinora nanci, and augmentation. IMPRESSION: No sonographic evidence of DVT within either lower extremity. POS: BERTA
--- NOTE | 2017-12-21 15:06 | OP ---
DATE OF PROCEDURE: 12/08/2017 PREOPERATIVE DIAGNOSES: 1. Post-injury day #5, status post fall from a horse. 2. Acute severe traumatic brain injury. 3. Acute posttraumatic respiratory failure. POSTOPERATIVE DIAGNOSES: 1. Post-injury day #5, status post fall from a horse. 2. Acute severe traumatic brain injury. 3. Acute posttraumatic respiratory failure. PROCEDURES PERFORMED: 1. Percutaneous tracheostomy tube placement. 2. Percutaneous endoscopic gastrostomy tube placement. INDICATIONS FOR OPERATION: A 57-year-old woman suffered acute severe traumatic brain injury 5 days p rior to this procedure. The patient suffered a severe acute traumatic brain injury and has been on m echanical ventilator support with slow progress. He requires a percutaneous tracheostomy tube for po tential prolonged airway protection and pulmonary toileting. Percutaneous endoscopic gastrostomy tub e placement is also warranted for potential prolonged enteral nutritional supplementation. DESCRIPTION OF PROCEDURE: Informed consent obtained from the patient's . The patient was eloy mike in spine position. FiO2 set at 100% with full mechanical ventilator support. The patient was gi say aliquots of midazolam and fentanyl until adequate sedation is achieved. The patient was then giv en vecuronium 10 mg intravenously. Following this, a fiberoptic bronchoscope was introduced through the previous endotracheal tube and a dvanced to visualize the danis. The tip of the endotracheal tube was withdrawn to 5 cm above the ca afsaneh. The anterior neck was transilluminated approximately two fingerbreadths above the suprasternal notch. This area was then sterilely prepped and draped in usual fashion. The skin is anesthetized with 1% lidocaine. A 1 cm vertical incision was made using 15 scalpel. An introducer needle was ins erted through this incision, advanced through the anterior tracheal wall and through this a guidewire was advanced into the distal tracheal lumen without resistance. Needle was withdrawn over the guide wire. Anterior tracheal wall was again sterilely dilated over the guidewire. Finally, a size 8 trac heostomy tube with a dilator and a plastic introducer was advanced as a unit over the guidewire and p laced in the distal tracheal lumen without resistance. The dilator introducer catheter and guidewire were removed as a unit leaving the tracheostomy tube in place. Inner cannula was inserted into the tracheostomy tube. The patient was then connected to mechanical ventilator support via the newly eloy mike tracheostomy tube. Once the cuff was inflated, good tidal volume was returned. Tracheostomy tub e is secured to anterior neck using old silk suture at 2 points. Trach dressings and tie were then a pplied. The previous endotracheal tube was withdrawn with the bronchoscope as a unit visualizing the tracheostomy site from above with good hemostasis. The scope was then reintroduced into the newly p laced tracheostomy tube and advanced to visualize the danis. No active bleeding was noted. The end oscope was withdrawn, visualizing the tracheostomy site from below with good hemostasis. Bronchoscop e was withdrawn, visualizing intact tracheobronchial mucosa. The patient tolerated this procedure wi thout any apparent complication and remains hemodynamically stable following completion of the trache ostomy with oxygen saturation remained greater than 95% at all times. Attention was then directed to the abdomen which was widely sterilely prepped and draped in usual fashion. A mouthguard was put in place and through this, an endoscope was advanced over the tongue and introduced, visualizing the or opharynx, which did not reveal any lesions. Esophagus was intubated with gentle insufflation. The e ndoscope was introduced into the gastric lumen. The stomach was insufflated. The scope was advanced into the proximal duodenum and finding no peptic ulcerative disease. The endoscope was then withdra wn back into the stomach transilluminating the left upper quadrant of the abdomen. The skin is anest hetized with 1% lidocaine here. Stab incision is made using an 11 scalpel. Introducer needle was inserted through this and advanced into the gastric lumen and visualized by endoscopy. A guidewire was advanced through the needle and placed in the stomach and was captured with Endo-snare. The guidewire and the endoscope were pulled out as a unit . The end of the guidewire was connec noris to a 20-Kyrgyz gastrostomy tube. The distal end of the guidewire was then pulled out through the skin incision leaving the mushroom end of the gastrostomy tube abutting the gastric wall within the lumen. The gastrostomy tube was then fashioned to length. It was secured to the intra-abdominal wal l at 3 cm using a bolster. Dressing was applied. Endoscopy was performed confirming proper placemen t of the gastrostomy tube. No active bleeding was noted. Finding no other pathology, endoscopy was terminated. The abdomen was desufflated and endoscope was withdrawn visualizing intact esophageal mu cosa. The patient tolerated the procedure without any apparent complication and remained hemodynamic ally stable following completion of the procedure.
== END 2017-12-16 19:15 | DRG 3 ==
LOC: ERS 10:43 → CCU 11:37 → SURG A 12-11 15:38
PROVIDERS: ADMIT Surgery; ATTEND Surgery
PROC: 5A1955Z Respiratory Ventilation, Greater than 96 Consecutive Hours (ICD-10-PCS; principal; 2017-12-03)
PROC: 00H032Z Insertion of Monitoring Device into Brain, Percutaneous Approach (ICD-10-PCS; 2017-12-03)
PROC: 4A103BD Monitoring of Intracranial Pressure, Percutaneous Approach (ICD-10-PCS; 2017-12-03)
PROC: 02HV33Z Insertion of Infusion Device into Superior Vena Cava, Percutaneous Approach (ICD-10-PCS; 2017-12-04)
PROC: 03HY32Z Insertion of Monitoring Device into Upper Artery, Percutaneous Approach (ICD-10-PCS; 2017-12-04)
PROC: 0B113F4 Bypass Trachea to Cutaneous with Tracheostomy Device, Percutaneous Approach (ICD-10-PCS; 2017-12-08)
PROC: 0DH63UZ Insertion of Feeding Device into Stomach, Percutaneous Approach (ICD-10-PCS; 2017-12-08)
DX: S06.6X6A Traumatic subarachnoid hemorrhage with loss of consciousness greater than 24 hours without return to pre-existing conscious level with patient surviving, initial encounter (principal); J96.00 Acute respiratory failure, unspecified whether with hypoxia or hypercapnia; J69.0 Pneumonitis due to inhalation of food and vomit; J15.211 Pneumonia due to Methicillin susceptible Staphylococcus aureus; J13 Pneumonia due to Streptococcus pneumoniae; S22.31XA Fracture of one rib, right side, initial encounter for closed fracture; R78.81 Bacteremia; R40.2432 Glasgow coma scale score 3-8, at arrival to emergency department; R90.89 Other abnormal findings on diagnostic imaging of central nervous system; E87.6 Hypokalemia; E83.42 Hypomagnesemia; E83.39 Other disorders of phosphorus metabolism; R19.7 Diarrhea, unspecified; V80.010A Animal-rider injured by fall from or being thrown from horse in noncollision accident, initial encounter; Y92.89 Other specified places as the place of occurrence of the external cause; Y93.52 Activity, horseback riding
CPT/HCPCS: 36415; 36416; 51702; 70450; 70496; 70498; 71045; 71260; 74177; 80048; 80053; 80202; 82150; 82805; 83735; 83930; 84100; 85007; 85025; 85027; 85060; 85610; 85730; 86850; 86900; 86901; 87040; 87070; 87077; 87149; 87186; 87205; 90471; 90686; 93005; 93970; 94002; 94003; 94640; 95816; 95819; 96365; 96374; 96375; C9113; G0008; G0390; G8981-GP-CN; G8982-GP-CK; G8987-GO-CN; G8988-GO-CL; G9162-GN-CN; G9163-GN-CM; J0131; J0360; J0461; J0670; J0696; J1650; J1940; J2001; J2150; J2250; J2543; J2704; J3010; J3370; J3475; J3480; J3486; J7050; J7799; L1930; P9045; S0020; S0028